=== PATIENT | male | born 1980 | race Caucasian/White ===

== ENCOUNTER 2023-05-01 07:45 | Outpatient (CLI) | payer BC, SELFPAY ==
--- NOTE | 2023-05-01 08:00 | CRLHL7_ITS ---
For Patients: As a result of the Century Cures Act, medical imaging exams and procedure reports are released immediately into your electronic medical record. You may view this report before your referring provider. If you have questions, please contact your health care provider. INDICATION: Recurrent vomiting, nausea, unintended weight loss of 30+ pounds TECHNIQUE: 1.024 mCi sulfur colloid in eggs administered followed by routine planer anterior/posterior images of the stomach at 60, 90, 120 and 240 minutes. COMPARISON: CT performed same day FINDINGS: Immediate images demonstrate radiotracer uptake within the stomach. Radiotracer activity progresses from the stomach into the small bowel at 60, 90, 120 and 240 minutes with near complete clearing of the stomach at 240 minutes. Gastric emptying percentages as below: 0 min 100% remaining 60 min 40.8% remaining 90 min 22% remaining 120 min 11.5% remaining 240 min 0.48% remaining IMPRESSION: Normal gastric scintigraphy examination. No evidence of delayed gastric emptying or rapid gastric emptying. Dictated by Gianni Duenas MD @ 05/02/2023 10:12:11 AM (Electronically Signed)
--- NOTE | 2023-05-01 13:30 | CRLHL7_ITS ---
For Patients: As a result of the Century Cures Act, medical imaging exams and procedure reports are released immediately into your electronic medical record. You may view this report before your referring provider. If you have questions, please contact your health care provider. Indication: RECURRENT VOMITING Technique: Postcontrast CT abdomen and pelvis. 79 cc Isovue 370 intravenous contrast. Please note that all CT scans at this facility use dose modulation, iterative reconstruction, and/or weight-based dosing when appropriate to reduce radiation dose to as low as reasonably achievable. Comparison: CT chest 02/20/2022, gastric emptying exam 05/01/2023, colonoscopy and EGD 03/20/2023, ultrasound 02/12/2023 Findings: Lung bases are clear. No pleural effusion. No suspicious intrahepatic mass. Small incidental focus of fat deposition within the liver adjacent to the falciform ligament. The spleen is normal. Normal adrenal glands. Small extrarenal pelvis is present bilaterally. Left renal cysts measuring up to 1.9 cm. No solid renal mass. No hydronephrosis. No hiatal hernia. The stomach appears normal. Normal position of the duodenum and jejunum without malrotation. The prostate is mildly prominent. Normal bladder. No bladder stones. No bowel obstruction. Stool throughout the colon. Normal appendix. Terminal ileum appears normal. A few scattered subcentimeter retroperitoneal and mesenteric lymph nodes are present. No free air or free fluid. No abscess. No fracture. Degenerative changes of both hip joints with chondrocalcinosis. The gallbladder is normal. Normal tapering of the biliary tree. Calcifications are present adjacent to the pancreatic head. The pancreatic tail is absent. No portal vein thrombosis. 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 This may be associated with exocrine insufficiency/abdominal pain. Coarse calcifications adjacent to the pancreatic head may be secondary to recurrent episodes of pancreatic head pancreatitis. No acute inflammation. No malrotation is present. Incidental simple left renal cysts. Please note that all CT scans at this facility use dose modulation, iterative reconstruction, and/or weight-based dosing when appropriate to reduce radiation dose to as low as reasonably achievable. Dictated by Gianni Duenas MD @ 05/02/2023 10:07:10 AM (Electronically Signed)
== END 2023-05-01 07:46 | disposition home or self-care (01) ==
LOC: NM 07:48
PROVIDERS: PCP Physician Assistant; Visit Provider Internal Medicine Gastroenterology
DX: R11.10 Vomiting, unspecified (principal); K85.90 Acute pancreatitis without necrosis or infection, unspecified; N28.1 Cyst of kidney, acquired; R12 Heartburn; R63.4 Abnormal weight loss
CPT/HCPCS: 74177; 78264; A9541; Q9967

== ENCOUNTER 2024-12-18 16:06 | Observation (INO) | payer BC, SELFPAY ==
[2024-12-18] VITALS (14 sets, daily range): BP systolic 123–153; BP diastolic 79–102; PULSE 80–106; RESP 0–20; TEMP 36.8–37.3; O2SAT 95–98; BMI 24.4; BMI 24.7
--- OUTSIDE RECORDS SUMMARY | 2024-12-18 16:09 | XMS_ITS | Clinical Summary ---
Author Organization [facility] Address [address] [place] [id number] Care Team Providers Care Back Filler Operator Name Role Phone Elsewhere, Pcp Primary Care Provider Unavailabl e Source Comments Patient records contain information from all sites at [facility]. For routine questions regarding patient records, call [phone] during business hours, M-F 8:00 AM - 5:00 PM Central Time. Record requests for emergency care only can be directed to [phone] at any time.[facility] Allergies Active Allergy Reactions Criticality Noted Date Comments Bee Venom Protein (Honey Bee) Anaphylaxis High 06/28/2023 Hymenoptera Allergenic Extract Edema (Reselect Reaction),Shortness of breath (Reselect Reaction) Medium 10/10/2006 Pollen Extracts Other (see comments) 12/31/2010 Pollen, Micronized Other (see comments) Low Medications blood sugar diagnostic strips (Contour Next Test Strips) Test 3 times daily E11.65 NIDDM type II, uncontrolled - Test 3 times/day, Reason: High A1C Active busPIRone (BUSPAR) 30 mg tablet Take 30 mg by mouth. 023 Active Trulicity 3 mg/0.5 mL injection INJECT 3 MG SUBCUTANEOUSLY ONCE A WEEK Active DULoxetine (CYMBALTA) [address] capsule Take 60 mg by mouth. 023 Active EPINEPHrine 0.3 mg/0.3 mL injection syringe Inject 0.3 mg intramuscularly daily as needed. 022 Active famotidine (PEPCID) 40 mg tablet Take 40 mg by mouth. 023 Active fluticasone propionate (FLONASE) 50 mcg/actuation nasal spray Administer 2 sprays into nostril(s) as needed. 022 Active fenofibrate nanocrystallized (TRICOR) 145 mg tablet Take 145 mg by mouth daily. Active hydrOXYzine (ATARAX) 25 mg tablet Take 25-50 mg by mouth every 8 (eight) hours as needed. Active lisinopriL (PRINIVIL,ZESTRIL) 5 mg tablet Take 5 mg by mouth. Active loperamide (IMODIUM A-D) 2 mg capsule Take 2 mg by mouth 2 (two) times a day as needed. Active magnesium oxide (MAG-OX) 400 mg (241.3 mg magnesium) tablet Take 400 mg by mouth. Active metoclopramide (REGLAN) 5 mg tablet Take 5 mg up to 2 times a day for severe nausea/vomiting. Active ondansetron ODT (ZOFRAN-ODT) 4 mg disintegrating tablet Dissolve 4 mg in the mouth every 8 (eight) hours as needed. Active pantoprazole (PROTONIX) 40 mg EC tablet Active pioglitazone (ACTOS) 30 mg tablet Take 30 mg by mouth. Active pravastatin (PRAVACHOL) 20 mg tablet Take 1 tablet by mouth at bedtime. Active sildenafiL (VIAGRA) 100 mg tablet Take 100 mg by mouth at bedtime as needed. Active sucralfate (CARAFATE) 1 gram tablet Take 1 g by mouth 3 (three) times a day before meals. for 14 days Active zolpidem (AMBIEN) 5 mg tablet Take 5 mg by mouth at bedtime as needed. Active fluoxetine HCl (FLUOXETINE ORAL) Take by mouth at bedtime. Ask me Active FreeStyle Anurag 2 Sensor kit CHANGE SENSOR EVERY 14 DAYS Active insulin glargine 100 unit/mL (3 mL) injection Inject 16 Units under the skin. Active RISPERIDONE ORAL Take by mouth at bedtime. 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 Gender Identity Not on file Sexual Orientation Not on file Last Filed Vital Signs Vital Sign Reading Time Taken Comments Blood Pressure 110/74 07/03/2023 3:11 PM CDT Pulse 110 07/03/2023 3:11 PM CDT Temperature 36.9 C (98.4 F) 05/16/2023 7:45 PM CDT Respiratory Rate 17 05/17/2023 3:00 AM CDT Oxygen Saturation 97% 05/17/2023 3:00 AM CDT Inhaled Oxygen Concentration - - Weight 70.5 kg (155 lb 6.8 oz) 07/03/2023 3:11 P M CDT Height 180 cm (5' 10.87) 07/03/2023 3:11 PM CDT Body Mass Index 21.76 07/03/2023 3:11 PM CDT Plan of Treatment Health Maintenance Due Date Last Done Comments CT Colonography 1978 Cologuard 1978 FIT 1978 HIV Screening 1978 Hepatitis C Screening 1978 COVID-19 Vaccine ( season) 2024 03/29/2023, 06/15/2022, 12/08/2020 Influenza Vaccine (#1) 2024 , 06/15/2022, 06/24/2020, Additional history exists Creatinine Level (Kidney Function Test) 09/06/2024 09/06/2023, 08/22/2023, 08/21/2023, Additional history exists Potassium Level 09/06/2024 09/06/2023, 07/26, 08/20/2023, Additional history exists Sodium Level 09/06/2024 09/06/2023, 07/26, 08/21/2023, Additional history exists Depression Screening (Annual PHQ-2) 09/24/2024 Fasting Glucose for Diabetes Screening 09/06/2026 09/06/2023, 08/13/2023, 08/13/2023, Additional history exists Lipid (Cholesterol) Screening 08/18/2028 08/18/2023, 09/19/2022, 09/27/2020, Additional history exists Colonoscopy 03/20/2033 03/20/2023 Colorectal Cancer Screening 03/20/2033 DTaP,Tdap,and Td Vaccines (3 - Td or Tdap) 03/29/2033 03/29/2023, 08/01/2011 Pneumococcal vaccine (0-49 years) Aged Out 09/26/2019 No longer eligible based on patient's age to complete this topic Hepatitis B Screening Discontinued 09/27/2020 Hepatitis B Vaccines Completed 09/19/2022, 11/15/2020, 10/11/2020 Glucose Test for Med Monitoring Discontinued 09/06/2023, 08/23/2023, 08/22/2023, Additional history exists IPV Vaccines Aged Out No longer eligi ble based on patient's age to complete this topic Procedures Procedure Name Priority Date/Time Associated Diagnosis Comments COMPREHENSIVE METABOLIC PANEL, S/P Routine 07/03/2023 4:37 PM CDT Nausea And Vomiting Diabetes Mellitus Type 2 With Other Diabetic Kidney Complication Hyperglycemic (HCC) from Last 3 Months or Most Recently Relevant to Health Maintenance Results * (ABNORMAL) Comprehensive Metabolic Panel (07/03/2023 4:37 PM CDT) Potassium, S 4.6 3.6 - 5.2 mmol/L 07/03/2023 5:37 PM CDT DTL Sodium, S 134(L) 135 - 145 mmol/L 07/03/2023 5:37 PM CDT DTL Chloride, S 90(L) 98 - 107 mmol/L 07/03/2023 5:37 PM CDT DTL Bicarbonate, S 31(H) 22 - 29 mmol/L 07/03/2023 5:37 PM CDT DTL Anion Gap 13 7 - 15 07/03/2023 5:37 PM CDT DTL BUN (Blood Urea Nitrogen), S 14 8 - 24 mg/dL 07/03/2023 5:37 PM CDT DTL Creatinine 1.21 0.74 - 1.35 mg/dL 07/03/2023 5:37 PM CDT DTL Estimated GFR (eGFR) 76 >=60 mL/min/BS A 07/03/2023 5:37 PM CDT DTL Comment: Estimated GFR calculated using the 2020 CKD_EPI creatinine equation. Calcium, Total, S 9.8 8.6 - 10.0 mg/dL 07/03/2023 5:37 PM CDT DTL Glucose, S 361(H) 70 - 140 mg/dL 07/03/2023 5:37 PM CDT DTL Protein, Total, S 7.1 6.3 - 7.9 g/dL 07/03/2023 5:37 PM CDT DTL Albumin, S 4.4 3.5 - 5.0 g/dL 07/03/2023 5:37 PM CDT DTL Aspartate Aminotransferase (AST), S 23 8 - 48 U/L 07/03/2023 5:37 PM CDT DTL Alkaline Phosphatase, S 164(H) 40 - 129 U/L 07/03/2023 5:37 PM CDT DTL Alanine Aminotransferase (ALT), S 22 7 - 55 U/L 07/03/2023 5:37 PM CDT DTL Bilirubin, Total, S 0.4 0.0 - 1.2 mg/dL 07/03/2023 5:37 PM CDT DTL Blood (Blood, Venous) 07/03/2023 4:37 PM CDT 07/03/2023 5:17 PM CDT Ovidio Covington M.D. LAB BLOOD ADD-ON Final R esult [facility] [address] [place] [address], [facility] [address] [place] [address] from Last 3 Months or Most Recently Relevant to Health Maintenance Insurance [facility] Care Teams Back Filler Operator Relationship Specialty Start Date End Date Elsewhere, Pcp PCP - General Internal Medicine 05/16/23
--- OUTSIDE RECORDS SUMMARY | 2024-12-18 16:09 | XMS_ITS | Continuity of Care Document ---
Author Organization [facility] Address [address] [address] [place] [address] Phone Care Team Providers Care Pillow Agent Name Role Phone No Information Unavailable Unavailable Allergies, Adverse Reactions, Alerts Substance Reaction Status Criticality No Known Allergies Active No Inform ation Medications Medication Instructions Dosage Effective Dates (start - stop) Status Comments MAGNESIUM-VITAMIN D3-TURMERIC (unknown strength) Not Available - Active lisinopril 5 mg tablet take 1 tablet by oral route every day 5 MG - Active famotidine 40 mg tablet take 1 tablet by oral route every day at bedtime 40 MG - Active pravastatin 20 mg tablet take 1 Tablet by oral route every day 20 MG - Active FENOFIBRATE (unknown strength) take 1 capsule by oral route every day with food Not Available - Active metoclopramide 5 mg tablet take 1 tablet by oral route 8 times every day 30 minutes before meals and at bedtime 5 MG - Active buspirone 15 mg tablet take 1 tablet by oral route 2 times every day 15 MG - Active pioglitazone 30 mg tablet take 1 tablet by oral route every day 30 MG - Active duloxetine 60 mg capsule,delayed release take 1 capsule by oral route 2 times every day 60 MG - Active sucralfate 1 gram tablet take 1 tablet by oral route 1 - 2 times every day 1 G - Active zolpidem 5 mg tablet take 1 Tablet by oral route every bedtime as needed 5 MG - Active hydroxyzine HCl 25 mg tablet take 2 Tablet by oral route every 9 hours as needed for pain 50 MG - Active DULOXETINE HCL (unknown strength) take 1 capsule by oral route every day Not Available - Active insulin glargine (U-100) 100 unit/mL subcutaneous solution inject by subcutaneous route as per insulin protocol 0.00 - Active pantoprazole 40 mg tablet,delayed release take 1 tablet by oral route every day 40 MG - Active Procedures Procedure Date Office Cons New/estab Mod Advance Directives Directive Yes / No Effective Date File Name No Information Encounters Encounter Description Practice Location Reason(s) For Visit Diagnoses Date Provider Providers Copied on Encounter [facility], [address] [address], [place], [place], [id number], [place] tel:[phone] No Information 3 No Information [facility], [address] [address], [place], [place], [id number], [place] tel:[phone] [facility] Pancreatic abnormality [address] [facility], [address], [id number], [place]. tel:[phone] Office Cons New/estab Mod [facility], [address] [address], [place], [place], [id number], [place] tel:[phone] [facility] GI Symptoms or Concerns (chief complaint) Recurrent vomitingWeight lossHeartburn [address] [facility], [facility] [address], [place], [id number], [place]. tel:[phone] Referring Provider: Lizbet Rich [facility], [address] [place] [address], [address]. tel:[phone] [facility], [address] [address], [place], [id number], [place] tel:[phone] [facility] No Information 3 Mehdi López. [address] [address], [place], [id number], . tel:[phone] Family History Family Member Type Diagnosis Age At Onset Brother Problem (finding) Asthma Immunizations Vaccine Date Status Comments SARS-COV-2 (COVID-19) vaccin e, mRNA, spike protein, LNP, bivalent booster, preservative free, 30 mcg/0.3 mL dose, mati-sucrose formulation administered Note: [facility] bi-d irectional interface ; Source: Other Registry tetanus toxoid, reduced diphtheria toxoid, and acellular pertussis vaccine, adsorbed administered Note: [facility] b i-directional interface ; Source: Other Registry Engerix-B administered Note: [facility] bi-d irectional interface ; Source: Other Registry SARS-COV-2 (COVID-19) vaccin e, mRNA, spike protein, LNP, preservative free, 30 mcg/0.3mL dose, mati-sucrose formulation administered Note: [facility] C bi- directional interface ; Source: Other Registry Afluria Qd administered Note: [facility] bi-directional interface ; Source: Other Registry SARS-COV-2 (COVID-19) vaccin e, mRNA, spike protein, LNP, preservative free, 100 mcg/0.5mL dose or 50 mcg/0.25mL dose administered Note: [facility] bi -directional interface ; Source: Other Registry Engerix-B administered Note: [facility] bi-d irectional interface ; Source: Other Registry Engerix-B administered Note: [facility] bi-d irectional interface ; Source: Other Registry influenza virus vaccine, unspecified formulation administered Note: [facility] bi-di rectional interface ; Source: Other Registry Pneumovax 23 administered Note: [facility] bi-d irectional interface ; Source: Other Registry Influenza administered Note: [facility] bi-d irectional interface ; Source: Other Registry Influenza administered Note: [facility] bi-d irectional interface ; Source: Other Registry Influenza administered Note: [facility] bi-d irectional interface ; Source: Other Registry Influenza administered Note: [facility] bi-d irectional interface ; Source: Other Registry Influenza administered Note: [facility] bi-d irectional interface ; Source: Other Registry influenza, live, intranasal, quadrivalent administered Note: [facility] bi-direct ional interface ; Source: Other Registry tetanus toxoid, reduced diphtheria toxoid, and acellular pertussis vaccine, adsorbed administered Note: [facility] b i-directional interface ; Source: Other Registry Influenza, seasonal, injectable administe red Note: [facility] bi- directional interface ; Source: Other Registry Influenza, seasonal, injectable administe red Note: [facility] bi- directional interface ; Source: Other Registry Payers Payer name Insurance type Covered green party ID Authoriza tion(s) No Information Social History Type Description Quantity Date Captured Comments Sex Male Smoking Status No Information Chief Complaint And Reason For Visit No Information Reason For Referral Reason For Referral No Information Plan Of Treatment Date Type Action Status Referral Ordered: Pancreatic Elastase, Fecal Appointment date/timeframe: First Available ordered Referral Ordered: Gastric Emptying Study (4 Hours) Appointment date/timeframe: 05/09/2023 ordered Referral Ordered: CT Abdomen And Pelvis With Contrast Per Radiology Appointment date/timeframe: 05/09/2023 ordered History Of Present Illness Encounter Date Complaint History Of Prese nt Illness GI Symptoms or Concerns Alex is a 42-year-old male with history of diabetes, depression, anxiety accompanied by his girlfriend, seen in consultation at the request of his referring primary care provider Lizbet HURLEY, for evaluation of nausea and vomiting. Patient reports a 2 to three-month history of nausea and vomiting with increased symptoms in the last month. He reports an associated 24 pound weight loss. He describes decreased appetite as well as increased symptoms of heartburn. He has been on famotidine 40 milligrams before bed for a long time. He was recently started on sucralfate. He was also prescribed metoclopramide which she is been taking for the last 2-3 weeks and does not feel that it has helped. He says he will wake in the morning and vomit undigested food. The frequency of symptoms is random. He denies diarrhea constipation or blood in the stool. He underwent an EGD and colonoscopy performed elsewhere on March 20. 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 Labs performed on February 26 showed a normal lipase, normal LFTs except increased alk-phos 177.Colonoscopy showed internal hemorrhoids and was otherwise normal with a recommendation for repeat in 10 years. Functional Status Date Functional Assessmen t No Information Instructions Date Instruction Additional Infor dean 1. take pantoprazole 40mg daily - script sent to pharmacy2. continue famotidine before bed3. stop metoclopramide (patient reports has not helped and risk of tardive dyskinesia)4. sucralfate as needed as prescribed by primary - avoid taking within 2 hours of other medications as can interfere with absorption5. CT abdomen/pelvis6. gastric emptying test7. eat small, frequent, low fat meals8. continue to follow with primary for management of diabetes - optimize glucose control9. f/u after tests Related to Heartburn Assessments Type Assessment Date No Information Patient Care Teams Name Effective Dates (start - stop) Status Members No Information
--- OUTSIDE RECORDS SUMMARY | 2024-12-18 16:09 | XMS_ITS | Clinical Summary ---
Author Organization [facility] Address [address] [place] [address] Care Team Providers Care Seed Analysis Laboratory Assistant Name Role Phone Anushka Krueger Luis Enrique RN Unavailable Alanis Archuleta MD Primary Care Prov ider Cecelia Collins ACID TENDER Unavailable [phone] Rachel Davis RN Unavailable [phone] Yosvany Alcocer PharmD Unavailable Allergies Active Allergy Reactions Criticality Noted Date Comments Hymenoptera Allergenic Extract Shortness Of Breath,Edema Medium 10/10/2006 Bee Venom Protein (Honey Bee) Anaphylaxis High 06/28/2023 Pollen, Micronized Runny Nose Low 10/10/2006 Medications lancetsIndications: Hyperosmolar hyperglycemic state (HHS) (HC) Dispense item covered by pt ins. E11.9 IDDM type II - Test 4 times/day. 100 Each 08/20/20 23 Active Blood-Glucose Meter (Accu-Chek Guide Glucose Meter) Use as directed to test blood sugar. 1 Each 08/20/20 23 Active DULoxetine (CYMBALTA) 60 mg Delayed-release capsuleIndications: MDD (major depressive disorder), recurrent episode, moderate (HC) Take 1 Capsule (60 mg) by mouth once daily. 90 Capsule 3 11/27/19 24 Active EPINEPHrine (EPIPEN) 0.3 mg/0.3 mL auto-injectorIndica tions:Allergic reaction, subsequent encounter Inject 0.3 mg intramuscular one time if needed for Allergic Reaction. 2 Each 1 11/27/19 24 Active fenofibrate nanocrystallized (Tricor) 145 mg tabletIndications:H yperlipidemia, unspecified hyperlipidemia type Take 1 Tablet (145 mg) by mouth once daily with a meal. 90 Tablet 3 11/27/19 24 Active lisinopriL (PRINIVIL; ZESTRIL) 5 mg tabletIndications:S tage 3b chronic kidney disease (HC) Take 1 Tablet (5 mg) by mouth once daily. 90 Tablet 3 11/27/19 24 Active pravastatin (PRAVACHOL) 20 mg tabletIndications:H yperlipidemia, unspecified hyperlipidemia type Take 1 Tablet (20 mg) by mouth at bedtime. 90 Tablet 3 11/27/19 24 Active blood sugar diagnostic (Contour Next Test Strips) stripIndications:Di abetes mellitus type 2 with complications (HC) Dispense item covered by pt ins. E11.65 NIDDM type II, uncontrolled - Test 4 time/day 100 Each 05/01/20 24 Active pen needle (Yasmin Pen Needle) 32 gauge x 5/32 (disposable insulin pen needle)Indications: Diabetes mellitus type 2 with complications (HC) Inject 100 Each subcutaneous. To use with insulin 4x daily 100 Each 3 05/01/20 24 Active medication order composerIndications :Hypomagnesemia,Hyp okalemia Patch MD Multivitamin patches-apply 1 patch to dry skin. Change daily. Leave on up to 8 hours per day. 90 Patch 05/08/20 24 Active ciclopirox (CICLODAN) 8 % topical solutionIndications :Onychomycosis Apply topically to affected area(s) at bedtime. Apply solution once daily to affected nails with applicator brush, preferably at bedtime or 8 hours before washing; remove with alcohol every 7 days 6.6 mL 05/08/20 24 Active sennosides (SENNA) 8.6 mg tabletIndications:C onstipation, unspecified constipation type Take 2 Tablets (17.2 mg) by mouth 2 times daily if needed (constipation). 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 Take 30 minutes to 4 hours before sexual activity. Max 100mg/24hr. 10 Tablet 2 08/08/20 24 Active metFORMIN (GLUCOPHAGE XR) 500 mg Extended-Release tabletIndications:U ncontrolled type 2 diabetes mellitus with hyperglycemia (HC) Take 1 Tablet (500 mg) by mouth two times daily with meals. 180 Tablet 3 09/08/20 24 Active FreeStyle Anurag 3 Plus Sensor for continuous blood glucose monitor (CGM)Indications:Di abetes mellitus type 2 with complications (HC) To be used to read blood sugars, follow glue bone drier directions. Change every 15 days 2 Each 11 10/31/19 25 Active empagliflozin (JARDIANCE) 25 mg tabletIndications:D iabetes mellitus type 2 with complications (HC) Take 1 Tablet (25 mg) by mouth once daily. 90 Tablet 11/21/19 25 Active mirtazapine (REMERON) 45 mg tabletIndications:D epression, unspecified depression type Take 1 Tablet (45 mg) by mouth at bedtime. 60 Tablet 11/21/19 25 Active magnesium oxide 400 mg tabletIndications:H ypomagnesemia Take 1 Tablet (400 mg) by mouth two times daily. If significant diarrhea, ok to take 1 pill per day 60 Tablet 12/11/19 25 Active insulin aspart (U-100) 100 unit/mL (3 mL) penIndications:Diab etes mellitus type 2 with complications (HC) Novolog to 15 units at lunch (10:30AM), snack/fastfood (2:30PM), dinner (7PM) 12/11/19 25 Active Lantus Solostar U-100 Insulin 100 unit/mL (3 mL) penIndications:Diab etes mellitus type 2 with complications (HC) Inject 35 units subcutaneous at night. Product desired: LANTUS SOLOSTAR 12/11/19 25 Active FreeStyle Anurag 2 SensorIndications:D iabetes mellitus type 2 with complications (HC) CHANGE SENSOR EVERY 14 DAYS 6 Each 3 04/28/20 24 2024 Disconti nued(*Pa tient states no longer taking) mirtazapine (REMERON) 30 mg tabletIndications:D epression, unspecified depression type Take 1 Tablet (30 mg) by mouth at bedtime. 90 Tablet 3 08/08/20 24 2024 Disconti nued(Reo rder (E-cance l not sent)) empagliflozin (JARDIANCE) 10 mg tabletIndications:D iabetes mellitus type 2 with complications (HC) Take 1 Tablet (10 mg) by mouth once daily. 60 Tablet 10/20/19 25 2024 Disconti nued(*Me d complete /Regimen complete /Level of care change) Lantus Solostar U-100 Insulin 100 unit/mL (3 mL) penIndications:Diab etes mellitus type 2 with complications (HC) Inject 20 units subcutaneous before work and 20 units subcutaneous before supper. Product desired: LANTUS SOLOSTAR 11/06/19 25 2024 Disconti nued(Reo rder (E-cance l not sent)) insulin aspart, U-100, (NOVOLOG FLEXPEN) 100 unit/mL (3 mL) penIndications:Diab etes mellitus type 2 with complications (HC) Novolog to 10 units at lunch (10:30AM), snack/fastfood (2:30PM), dinner (7PM) 11/06/19 25 2024 Disconti nued(Reo rder (E-cance l not sent)) Active Problems Problem Noted Date Diagnosed Date Pancreatic hypoplasia 08/08/2024 Severe episode of recurrent major depressive disorder, without psychotic features 11/30/2023 Suicidal ideation 08/13/2023 Hyperosmolar hyperglycemic state (HHS) 3 Intractable vomiting 06/15/2023 Uncontrolled type 2 diabetes mellitus with hyper glycemia 06/15/2023 Encounter for screening colonoscopy 03/20/2023 Chronic GERD 03/15/2023 Stage 3b chronic kidney disease 02/05/2023 Peripheral sensory neuropathy 09/20/2022 Primary insomnia 03/06/2022 Acute gout of left ankle 02/21/2022 Cognitive developmental delay 02/21/2022 Hypomagnesemia 02/21/2022 Hypokalemia with shifts of f luid from extracellular to intracellular space 02/21/2022 Pulmonary nodule 02/20/2022 Diabetes mellitus type 2, uncontrolled, with com plications 09/28/2020 Major depressive disorder, recurrent episode, mo derate 11/28/2018 Generalized anxiety disorder 11/28/2018 HTN (hypertension) 08/24/2014 Hyperlipidemia 03/25/2013 Allergic rhinitis 03/24/2013 Resolved Problems Problem Noted Date Diagnosed Date Resolved Date HHS (hypothenar hammer syndrome) 08/13/2023 08/13/2023 Hyponatremia 08/13/2023 08/13/2023 Type 2 diabetes mellitus wit 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, with long-term current use of insulin 04/12/2023 06/15/2023 Sinusitis 02/21/2022 09/20/2022 DKA (diabetic ketoacidosis) 02/20/2022 12/27/2022 Right shoulder pain 02/20/2022 09/20/20 Right ankle pain 02/20/2022 09/20/2022 Sepsis 02/20/2022 09/20/2022 Confusion 02/20/2022 09/20/2022 COVID-19 virus infection 08/24/2021 CKD (chronic kidney disease) stage 3, GFR 30-59 ml/min 09/28/2020 02/05/2023 Diabetes mellitus type 2, un controlled, without complications 09/26/2019 09/28/2020 YASH (generalized anxiety disorder) 08/02/2018 02/02/2020 Diabetes mellitus type 2, uncomplicated 03/25/2013 08/02/2018 Major depressive disorder, r ecurrent episode, mild 10/17/2007 02/02/2020 Adjustment disorder with mix ed anxiety and depressed mood 10/17/2007 08/02/2018 Encounters Date Type Department Care Team Description 12/18/2024 3:05 PM CDT Office Visit [facility] [address] [place] [address] Talha Dominguez MD Diabetes (Not feeling well lately, missing work due to not feeling well. ) 12/18/2024 Travel 12/10/2024 Telephone [facility] [address] [place] [address] Talha Dominguez MD Results 12/10/2024 Orders Only [facility] [address] [place] [address] Talha Dominguez MD <No scans attached> 12/10/2024 Telephone [facility] [address] [place] [address] Selena Sánchez PA 12/09/2024 Orders Only [facility] Scanner 1 scan: (1-Ord) [facility], MULTIPLE LAB TESTS, 12/09/2024 12/09/2024 Travel 12/04/2024 Telephone [facility] [address] [place] [address] Alanis Archuleta MD 11/24/2024 3:30 PM LEAD JAVA DEVELOPER ARCHITECT Patient Outreach [facility] Care Management - Advanced Care Team [address] [place] [address] Cecelia Collins LSW Complex Care Management (Follow Up Call) 11/21/2024 3:30 PM LEAD JAVA DEVELOPER ARCHITECT Office Visit [facility] [address] [place] [address] Talha Dominguez MD Follow Up (Diabetes ) 11/21/2024 Travel 11/14/2024 3:30 PM LEAD JAVA DEVELOPER ARCHITECT Patient Outreach [facility] Care Management - Advanced Care Team [address] [place] [address] Cecelia Collins LSW Complex Care Management (Follow Up Call) 11/12/2024 3:30 PM LEAD JAVA DEVELOPER ARCHITECT Office Visit [facility] [address] [place] [address] Pierce Herzog PsyD, JAMAL Individual Therapy 11/12/2024 Travel 11/11/[address] [address] Anushka Krueger RN Diabetes (Anurag CGM report/insulin management) 11/06/[address] [phone] Anushka Krueger fuel cell binder (Insulin management/CGM report) 11/05/2024 4:00 PM LEAD JAVA DEVELOPER ARCHITECT Patient Outreach [facility] Care Management - Advanced Care Team [address] [place] [address] Rachel Davis RN Complex Care Management (Patient Outreach - F/u) 11/05/2024 Travel 10/31/2024 3:00 PM LEAD JAVA DEVELOPER ARCHITECT Patient Outreach [address] [address] Anushka Krueger RN Diabetes (Follow-up hyperglycemia) 10/31/2024 Travel 10/29/2024 3:30 PM LEAD JAVA DEVELOPER ARCHITECT Office Visit [facility] [address] [place] [phone] Pierce Herzog PsyD, LP Individual Therapy 10/29/2024 Travel 10/27/2024 Patient Outreach [facility] Care Management - Advanced Care Team [address] [place] [phone] Cecelia Collins LSW Complex Care Management (Resources) 10/23/2024 3:00 PM LEAD JAVA DEVELOPER ARCHITECT Patient Outreach [facility] Care Management - Advanced Care Team [address] [place] [phone] Cecelia Collins LSW Complex Care Management (Initial Assessment) 10/22/2024 5:30 PM LEAD JAVA DEVELOPER ARCHITECT Phone Office Visit [facility] [address] [place] [address] Pierce Herzog PsyD, LP Individual Therapy; [facility]health[facility] 10/22/2024 Travel 10/21/2024 Patient Outreach [facility] Care Management - Advanced Care Team [address] [place] [phone] Rachel Davis RN Complex Care Management (Patient Outreach - F/u) 10/20/2024 3:30 PM LEAD JAVA DEVELOPER ARCHITECT Office Visit [facility] [address] [place] [address] Talha Dominguez MD Diabetes (sensor difficulty/feeling weak in the AMs) 10/20/2024 Travel 10/16/2024 3:00 PM LEAD JAVA DEVELOPER ARCHITECT Patient Outreach [facility] Care Management - Advanced Care Team [address] [place] [address] Cecelia Collins LSW Complex Care Management 10/15/2024 Telephone [facility] [address] [place] [address] Pierce Herzog PsyD, LP Appointment 10/07/2024 3:00 PM LEAD JAVA DEVELOPER ARCHITECT Patient Outreach [facility] Care Management - Advanced Care Team [address] [place] [phone] Rachel Davis, watershed program manager Management (Patient Outreach - Initial Clinician Call) 10/07/2024 Travel 10/02/2024 3:00 PM LEAD JAVA DEVELOPER ARCHITECT Pharmacist Medication Management [facility] [address] [place] [address] Yosvany Alcocer, PharmD Pharmacist Medication Management (PharmD initial PHONE CMR ) 09/30/2024 Patient Outreach [facility] Care Management - Advanced Care Team [address] [place] [address] Cecelia Collins LSW Complex Care Management (Care Coordination) 09/26/2024 3:00 PM LEAD JAVA DEVELOPER ARCHITECT Patient Outreach [facility] Care Management - Advanced Care Team [address] [place] [address] Cecelia Collins LSW Complex Care Management (Initial Clinician Outreach) 09/22/2024 Patient Outreach [facility] Care Management - Advanced Care Team [address] [place] [phone] Hayley Angel Complex Care Management ([facility] Engagement Outreach ) from Last 3 Months Immunizations Immunization Administration Dates Next Due COVID-19 vaccine (Moderna 100mcg/0.5mL) PF, MDV 12/08/2020 COVID-19 vaccine (Pfizer-Bio NTech 30mcg/0.3mL) 12YO+ BIVALENT PF, MDV 03/29/2023 COVID-19 vaccine (Pfizer-Bio NTech 30mcg/0.3mL) 12YO+ NOMI-SUCROSE PF, MDV 06/15/2022 Hepatitis B (Adult) 09/19/2022,11/15/2020,2020 INFLUENZA, IIV3 PF (AGE >= 6 MO) 06/20/2024 Influenza Virus, Unspecified 06/24/2020,07/31/20 13,07/27/2010 Influenza, IIV3 (Age >=3 years) 07/26/2011 Influenza, IIV4 11/27/2023,08/17/2023(),06/15/20 22 Influenza, IIV4 (=>6mos) MDV 07/16/2019, 07/11/2018,07/12/2017,2015 Pneumococcal Poly,23-Valent (Pneumovax) 09/26/2019 Tdap 03/29/2023,08/01/2011 Family History Medical History Relation Name Comments Diabetes Maternal Grandmother Diabetes Paternal Grandfather Relation Name Status Comments Maternal Grandmother Paternal Grandfather Social History Tobacco Use Types Packs/Day Years Used Date Smoking Tobacco: Former Smokeless Tobacco: Never Tobacco Cessation:Counseling Given: Yes Alcohol Use Standard Drinks/Week Comments Yes 0 (1 standard drink = 0.6 oz pure alcohol) occasionally wine,beer or liquor PHQ-2 Answer Date Recorded PHQ-2 TOTAL SCORE 4 10/23/2024 Social Connections Answer Date Recorded Do you often feel lonely or isolated from those around you? 4 10/23/2024 Alcohol Use Answer Date Recorded How often do you have a drink containing alcohol ? 0 08/19/2023 How many drinks containing a lcohol do you have on a typical day when you are drinking? 0 08/19/2023 How often do you have five or more drinks on one occasion? 0 08/19/2023 Financial Resource Strain Answer Date R ecorded Difficulty of Paying Living Expenses 1 10/23/2024 Difficulty of Paying Living Expenses 2 10/23/2024 Food Insecurity Answer Date Recorded Do you worry your food will run out before you are able to buy more? 1 10/23/2024 Transportation Needs Answer Date Record ed Does lack of transportation keep you from medica l appointments? 1 10/23/2024 Does lack of transportation keep you from work, meetings or getting things that you need? 1 10/23/2024 Housing Stability Answer Date Recorded What is your housing situation today? 2 10/23/2024 Interpersonal Safety Answer Date Record ed Are you being hit, kicked, p ushed or yelled at (see row info)? No 04/02/2024 Interpersonal Safety Abuse 12 - 18 Not on file 04/02/2024 Interpersonal Safety Ambulatory Vulnerability No t on file 04/02/2024 Utilities Answer Date Recorded Do you have trouble paying f or utilities (for example, heat, electricity, water, phone)? 1 10/23/2024 Sex and Gender Information Value Date Recorded Sex Assigned at Not on file Legal Sex Male 7:13 AM LEAD JAVA DEVELOPER ARCHITECT Gender Identity Not on file Sexual Orientation Not on file Obstetrics History Last Filed Vital Signs Vital Sign Reading Time Taken Comments Blood Pressure 125/82 12/18/2024 3:03 PM CDT Pulse 115 12/18/2024 3:03 PM CDT Temperature 37.3 C (99.2 F) 12/18/2024 3:03 PM CDT Respiratory Rate 18 04/02/2024 8:16 AM CDT Oxygen Saturation 96% 12/18/2024 3:03 PM CDT Inhaled Oxygen Concentration - - Weight 83.5 kg (184 lb) 12/18/2024 3:03 PM CDT Height 180.3 cm (5' 11) 04/02/2024 8:16 AM CDT Body Mass Index 25.66 04/02/2024 8:16 AM CDT Plan of Treatment Upcoming Encounters Date Type Department Care Team (Late st Contact Info) Description 12/22/2024 3:30 PM CDT Office Visit [facility] [address] [address] [place] [address] [place], [place] [phone] Health Maintenance Due Date Last Done Comments Pneumococcal series for age 6-49 (2 of 2 - PCV) 09/26/2020 09/26/2019 BMI (ht and wt on same day) for age 18+ 01/27/2024 01/26/2023, 12/13/2020, 09/26/2019, Additional history exists COVID-19 vaccine series ( season) 2024 03/29/2023, 06/15/2022, 12/08/2020 Depression screening for age 12+ 10/23/2025 10/23/2024, 10/21/2024, 05/12/2024, Additional history exists Lipids for age 45-75 08/18/2028 08/18/2023, 09/19/2022, 09/19/2022, Additional history exists Colonoscopy through age 75 03/20/2033 03/20/2023 Tetanus booster 03/29/2033 03/29/2023, 04/2011, 08/01/2011 Hepatitis C screening for ag e 18-79 Completed 10/10/2006 Hepatitis B series for Diabetes Completed 09/19/2022, 11/15/2020, 10/11/2020 HIV for age 15-65 Completed 03/29/2023 Tdap Completed 03/29/2023, 08/01/2011 Influenza Vaccine Completed 06/20/2024, , 06/15/2022, Additional history exists Procedures Procedure Name Priority Date/Time Associated Diagnosis Comments BASIC METABOLIC PANEL Routine 12/09/2024 2:41 PM CDT Diabetes mellitus type 2, uncontrolled, with complications HTN (hypertension) HEMOGLOBIN A1C Routine 12/09/2024 2:41 PM CDT Diabetes mellitus type 2, uncontrolled, with complications MAGNESIUM Routine 12/09/2024 2:41 PM CDT Magnesium deficiency SCAN-LABORATORY REPORT 12/09/2024 12:00 AM CDT LIPID PANEL EMANUEL 08/18/2023 5:09 PM LEAD JAVA DEVELOPER ARCHITECT LC HIV-1/O/2, 4TH GENERATION Routine 03/29/2023 4:40 PM CDT Screening for HIV (human immunodeficiency virus) COLONOSCOPY 03/20/2023 12:17 PM CDT ANTI HCV Routine 10/10/2006 2:36 PM LEAD JAVA DEVELOPER ARCHITECT Venereal Disease, Unspecified from Last 3 Months or Most Recently Relevant to Health Maintenance Results * (ABNORMAL) HEMOGLOBIN A1C (12/09/2024 2:41 PM CDT) HEMOGLOBIN A1C 13.9(H) <5.7 % of total Hgb [facility] Comment: For someone without known diabetes, a hemoglobin A1c value of 6.5% or greater indicates that they may have diabetes and this should be confirmed with a follow-up test. For someone with known diabetes, a value <7% indicates that their diabetes is well controlled and a value greater than or equal to 7% indicates suboptimal control. A1c targets should be individualized based on duration of diabetes, age, comorbid conditions, and other considerations. Currently, no consensus exists regarding use of hemoglobin A1c for diagnosis of diabetes for children. Blood BLOOD SPECIMEN / Unknown 12/09/2024 2:41 PM CDT 12/09/2024 2:42 PM CDT Talha Dominguez MD CHEMISTRY Final Result [facility] [address] [place] [address], [place] [phone] [facility] [address] [place] [address] * (ABNORMAL) MAGNESIUM (12/09/2024 2:41 PM CDT) MAGNESIUM 1.1(L) 1.5 - 2.5 mg/dL [facility] Blood BLOOD SPECIMEN / Unknown 12/09/2024 2:41 PM CDT 12/09/2024 2:42 PM CDT Talha Dominguez MD CHEMISTRY Final Result [facility] [address] [facility] [place] [address], [place] [phone] [facility] [address] [place] [address] * (ABNORMAL) BASIC METABOLIC PANEL (12/09/2024 2:41 PM CDT) GLUCOSE 596(HH) 65 - 99 mg/dL [facility] Comment: Verified by repeat analysis. Fasting reference interval For someone without known diabetes, a glucose value >125 mg/dL indicates that they may have diabetes and this should be confirmed with a follow-up test. UREA NITROGEN (BUN) 23 7 - 25 mg/dL [facility] CREATININE 1.34(H) 0.60 - 1.29 mg/dL [facility] EGFR 66 > OR = 60 mL/min/1.7 3m2 [facility] BUN/CREATININE RATIO 17 6 - 22 (calc) [facility] SODIUM 132(L) 135 - 146 mmol/L [facility] POTASSIUM 4.2 3.5 - 5.3 mmol/L [facility] CHLORIDE 88(L) 98 - 110 mmol/L [facility] CARBON DIOXIDE 32 20 - 32 mmol/L [facility] ELECTROLYTE BALANCE 12 7 - 17 mmol/L (calc) [facility] CALCIUM 9.5 8.6 - 10.3 mg/dL [facility] Blood BLOOD SPECIMEN / Unknown 12/09/2024 2:41 PM CDT 12/09/2024 2:42 PM CDT Talha Dominguez MD CHEMISTRY Final Result [facility] [address] [place] [address], [place] [phone] [facility] [address] [place] [address] * SCAN-LABORATORY REPORT (12/09/2024 12:00 AM CDT) us Scanner OTHER Final Result * Lipid Panel (08/18/2023 5:09 PM LEAD JAVA DEVELOPER ARCHITECT) Pathologist [facility] CHOLESTEROL,TOTAL 160 100 - 199 mg/dL 08/19/2023 8:30 AM [facility] Comment: Cholesterol, Total Reference Ranges Desirable <200 mg/dL Borderline 200-239 mg/dL High >=240 mg/dL TRIGLYCERIDES 129 <150 mg/dL 08/19/2023 8:30 AM [facility] HDL CHOLESTEROL 59 >40 mg/dL 8:30 AM [facility] NON-HDL CHOLESTEROL 101 <145 mg/dl 08/19/2023 8:30 AM [facility] CHOL/HDL RATIO 2.71 <4.50 08/19/2023 8:30 AM [facility] LDL CHOLESTEROL 75 <=130 mg/dL 08/19/2023 8:30 AM [facility] VLDL CHOLESTEROL 26 <=30 mg/dL 08/19/20 8:30 AM [facility] Blood BLOOD SPECIMEN / Unknown Venipuncture / Unknown 08/18/2023 5:09 PM LEAD JAVA DEVELOPER ARCHITECT 08/18/2023 5:11 PM LEAD JAVA DEVELOPER ARCHITECT us Meng Dudley [facility] PREMIUM REPRESENTATIVE CHEMISTRY Final Re sult [facility] [address] [place], [place] [id number] * LC HIV-1/O/2, 4TH GENERATION (03/29/2023 4:40 PM CDT) HIV Scr 4th Gen Non Reactive Non Reactive 04/04/2023 3:08 AM CDT [facility] Comment: HIV Negative HIV-1/HIV-2 antibodies and HIV-1 p24 antigen were NOT detected. There is no laboratory evidence of HIV infection. Blood BLOOD SPECIMEN / Unknown Venipuncture / Unknown 03/29/2023 4:40 PM CDT 03/29/2023 4:41 PM CDT Narrative [facility] - 04/04/2023 3:08 AM CDT Performed at: [address] [place] [address], [place] [id number] [employer]: Marcos Cruz MD, Phone: [phone] us [facility] Final Resu lt [facility] [place] [address], [place] * COLONOSCOPY (03/20/2023 12:17 PM CDT) 03/20/2023 12:1 7 PM CDT Narrative Transcriptions Anamaria Sousa, - 03/28/2023 2:47 PM CDT Patient Name: Bran Kuball Procedure Date: 03/20/2023 Gender: Male Date of : 1980 Admit Type: Ambulatory Procedure: Colonoscopy Proceduralist: Anamaria Sousa MD [facility] Referring MD: Lizbet Rich Indications/Pre-Op Diagnosis: Screening for colorectal malignant neoplasm, This is the patient's first colonoscopy Medications: Propofol per Anesthesia Procedure Description: The patient had risks, benefits and alternatives explained to andgave informed consent. The patient had a stable cardiopulmonary status and judged an adequate candidate for conscious sedation. The endoscope [id number] was passed through the anus andadvanced to the cecum, identified by appendiceal orifice and ileocecal valve.The colonoscopy was performed without difficulty. The patient toleratedthe procedure well. The ileocecal valve, appendiceal orifice, and rectum were photographed. The quality of the bowel preparation was adequateto identify polyps greater than 5 mm in size. Complications: No immediate complications. Estimated Blood Loss & Specimen: Estimated blood loss: none. Specimen collected - None Findings: Non-bleeding internal hemorrhoids were found during retroflexion. The hemorrhoids were Grade II (internal hemorrhoids that prolapse butreduce spontaneously). The exam was otherwise without abnormality. Impressions/Post-Op Diagnosis: - Non-bleeding internal hemorrhoids. - The examination was otherwise normal. - No specimens collected. Recommendation: - Discharge patient to home. - Patient has a contact number available for emergencies. The signsand symptoms of potential delayed complications were discussed with the patient. Return to normal activities tomorrow. Written discharge instructions were provided to the patient. - High fiber diet. - Continue present medications. - Repeat colonoscopy in 10 years for screening purposes. Moderate Sedation: Moderate (conscious) sedation was personally administered by an anesthesia professional. The following parameters were monitored:oxygen saturation, heart rate, blood pressure, and response to care. Anamaria Sousa MD 03/28/2023 2:47:20 PM This report has been signed electronically. Note Initiated On: 03/20/2023 12:17 PM Anamaria Sousa DO PROCEDURE ORD Fi nal Result * ANTI HCV (10/10/2006 2:36 PM LEAD JAVA DEVELOPER ARCHITECT) ANTI HCV Non-reactiv e [facility] Blood specimen (specimen) BLOOD SPECIMEN / Unknown 10/10/2006 2:36 PM LEAD JAVA DEVELOPER ARCHITECT 10/10/2006 2:25 PM LEAD JAVA DEVELOPER ARCHITECT Narrative [facility] - 10/15/2006 6:52 AM LEAD JAVA DEVELOPER ARCHITECT Testing Performed By [place], [place] Dre Contreras MD SEND OUTS Final Resul t [facility] [address] [place] [address] from Last 3 Months or Most Recently Relevant to Health Maintenance Insurance [facility] WORK[employer] COMP WORKERS COMP [employer] WORKERS COMP WORKERS COMP [employer] INS [facility] [employer] Advance Directives * Full Code (Latest Code Status on File) Date Activated Date Inactivated Comments 08/19/2023 8:00 AM 08/23/2023 11:56 AM Question Answer Comments Code Status Discussion: Reviewed Preferences * Full Code Date Activated Date Inactivated Comments 08/13/2023 9:53 AM 08/19/2023 5:15 AM Question Answer Comments Code Status Discussion: Reviewed Preferences * Full Code Date Activated Date Inactivated Comments 03/20/2023 12:13 PM 03/20/2023 4:06 PM Question Answer Comments Code Status Discussion: Discussed * Full Code Date Activated Date Inactivated Comments 02/20/2022 8:21 PM 02/22/2022 2:54 PM Question Answer Comments Code Status Discussion: Reviewed Preferences Care Teams Seed Analysis Laboratory Assistant Relationship Specialty Start Date End Date Alanis Archuleta [place] [address] PCP - General Family Practice 06/20/24 Anushka Krueger, RN [id number] [place] [id number] Obstetrician And Gynaecologist 11/18/21 Cecelia Collins, ACID TENDER [address] [place], [place] [id number] Complex Care Management District Plant Engineer 09/22/24 Rachel Davis, JERMAINE [address] [place], [place] [id number] Complex Care Management Registered Nurse 09/26/24 Yosvany Alcocer, PharmD [address] [place] [address] Pharmacist Medication Management Pharmacology 10/02/24 10/02/27
--- OUTSIDE RECORDS SUMMARY | 2024-12-18 16:09 | XMS_ITS ---
Author Organization [facility] ([facility]) Address [address] [place] [id number] Care Team Providers Care Filling Hauler Name Role Phone Unavailable Unavailable Unavailable Allergies, Adverse Reactions, Alerts This patient has no known allergies or adverse reactions. Problems This patient has no known problems.
--- NOTE | 2024-12-18 17:23 | ED_ITS ---
HPI - General Adult General Date Seen: 12/18/24 Chief complaint: Diabetic Related Problem Stated complaint: High blood sugar Time Seen by Provider: 12/18/24 17:23 History of Present Illness HPI narrative: 44-year-old male with a history of insulin-dependent diabetes and history of hospitalizations at [facility] for DKA. Per records from [facility]... He has a history of hypertension, hyperlipidemia, gout, uncontrolled type 2 diabetes, chronic GERD, cognitive and developmental delay, insomnia, peripheral neuropathy, depression, chronic kidney disease He had a visit to the primary care clinic, Dr. Dominguez, today. ... symptoms of drowsiness, fatigue, excessive thirst, and pre-syncope for the past 2 weeks, which have progressively worsened. He has not had any fainting episodes but feels like he is going to pass out. Despite adhering to his prescribed medication and insulin regimen, his blood glucose levels have been consistently elevated, ranging from 300s to 400s. He has been monitoring his blood glucose levels 3 times daily, which have been consistently in the 300s. He also reports morning vomiting episodes, occurring twice last week and 3 times this week. He has been experiencing cold sensations in his fingers and feet. He has been feeling very tired and wants to sleep. He has been feeling very thirsty. He has been feeling anxious and called the crisis line yesterday due to this of his health as well as not been able to go to work. Hemoglobin A1c on 12/09/2024 was 13.9, up from 13.0 last June. He is currently on Lantus 35 units q.h.s. and aspart insulin 15 units t.i.d.. Also oral metformin and Jardiance Most recent labs include sodium 132, potassium 4.2, chloride 88, bicarb 32, glucose 596, BUN 23, creatinine 1.34, magnesium 1.1 on 12/09/2024. Patient confirms the above history. He denies any cough. No trouble breathing. No chest pain. No palpitations. No headache. He has been vomiting in the morning a few days ago and typically throws up the food he had eaten the night before. Never anything bloody. No diarrhea. No abdominal pain. No rash. No swelling in his legs. He has been mostly taking his insulin as directed but says that his new palm the ?Aparna breath 3? Has not been reading right so sometimes he does not take insulin when he gets low readings. He is not really able to tell me how often he takes all 3 doses of his short-acting insulin and his long-acting insulin in each day. Related Data Home Medications ?Medication ?Instructions ?Recorded ?Confirmed empagliflozin 25 mg tablet 25 mg PO DAILY 12/18/24 12/18/24 (Jardiance) insulin aspart U-100 100 unit/mL subcut 12/18/24 (3 mL) subcutaneous pen (Novolog FlexPen U-100 Insulin aspart) insulin glargine 100 unit/mL (3 unit subcut 12/18/24 mL) subcutaneous pen (Lantus Solostar U-100 Insulin) metformin 500 mg tablet,extended mg PO 12/18/24 release 24 hr mirtazapine 45 mg tablet 45 mg PO QPM 12/18/24 12/18/24 vitamin patch 12/18/24 Allergies Allergy/AdvReac Type Severity Reaction Status Date / Time bee venom protein (honey bee) Allergy Anaphylaxis Verified 12/18/24 16:49 [facility] Social History Smoking Status: Never smoker Do you use any of these nicotine containing products: None How often do you have a drink containing alcohol: never How often do you have six or more drinks on one occasion: Never AUDIT-C Alcohol total score: 0 Non-prescribed substance use: denies use Exam Narrative: Exam Narrative: Constitutional: Appears well-developed and well-nourished. Alert. Conversant and pleasant. Non toxic. HENT: Head: Atraumatic. Nose: Nose normal. Mouth/Throat: Oral mucosa is clear but somewhat dry, not desiccated or cracked. no trismus. Pharynx normal. Tonsils symmetric. No tonsillar enlargement, erythema, or exudate. Eyes: Conjunctivae normal. EOM normal. Pupils equal, round, and reactive to light. No scleral icterus. Neck: Normal range of motion. Neck supple. No tracheal deviation present. Cardiovascular: Was tachycardic at triage but now that he is resting in his bed he has a Normal rate, regular rhythm. No gallop. No friction rub. No murmur heard. Symmetric radial artery pulses Pulmonary/Chest: Effort normal. No stridor. No respiratory distress. No wheezes. No rales. No rhonchi . No tenderness. Abdominal: Soft. Bowel sounds normal. No distension. No mass. No tenderness. No rebound. No guarding. No CVA tenderness. Musculoskeletal: RUE: Normal range of motion. No tenderness. No deformity LUE: Normal range of motion. No tenderness. No deformity RLE: Normal range of motion. No edema. No tenderness. No deformity LLE: Normal range of motion. No edema. No tenderness. No deformity Neurological: Alert and oriented to person, place, and time. Normal strength. CN II-VII intact. No sensory deficit. GCS eye subscore is 4. GCS verbal subscore is 5. GCS motor subscore is 6. Normal coordination Skin: Skin is warm and dry. No rash noted. No pallor. Normal capillary refill. Psychiatric: Normal mood. Normal affect. Const: Vital Signs, click to edit/add: Vital Signs - 24 hr 12/18/24 16:35 12/18/24 17:56 12/18/24 17:57 Temperature 99.1 F Pulse Rate 97 98 Pulse Rate [Pulse Oximeter] 106 H Respiratory Rate 20 6 L 0 L Blood Pressure 153/100 H Blood Pressure [Ri ght Upper Arm] 130/80 Pulse Oximetry 97 95 96 Oxygen Delivery Me thod Room Air 12/18/24 18:00 12/18/24 18:01 12/18/24 18:15 Temperature Pulse Rate 99 98 104 H Pulse Rate [Pulse Oximeter] Respiratory Rate 5 L 0 L 16 Blood Pressure 131/92 H Blood Pressure [Ri ght Upper Arm] Pulse Oximetry 95 95 98 Oxygen Delivery Me thod 12/18/24 18:16 12/18/24 18:30 12/18/24 18:31 Temperature Pulse Rate 103 H 104 H 103 H Pulse Rate [Pulse Oximeter] Respiratory Rate 10 L 20 9 L Blood Pressure 141/102 H 144/94 H Blood Pressure [Ri ght Upper Arm] Pulse Oximetry 96 96 97 Oxygen Delivery Me thod 12/18/24 18:45 12/18/24 18:46 Temperature Pulse Rate 100 100 Pulse Rate [Pulse Oximeter] Respiratory Rate 11 L 9 L Blood Pressure 125/101 H Blood Pressure [Ri ght Upper Arm] Pulse Oximetry 98 95 Oxygen Delivery Me thod Course Vital Signs Vital signs: Initial Vital Signs Temperature 99.1 F 12/18/24 16:35 Temperature Source Temporal Artery Scan 12/18/24 16:35 Pulse Rate 106 H 12/18/24 16:35 Pulse Rhythm Regular 12/18/24 16:35 Respiratory Rate 20 12/18/24 16:35 Blood Pressure 130/80 12/18/24 16:35 Blood Pressure Mean 96 12/18/24 16:35 Blood Pressure Position Sitting 12/18/24 16:35 Pulse Oximetry 97 12/18/24 16:35 Oxygen Delivery Method Room Air 12/18/24 16:35 Vital Signs Temperature 99.1 F 12/18/24 16:35 Pulse Rate 106 H 12/18/24 16:35 Respiratory Rate 20 12/18/24 16:35 Blood Pressure 130/80 12/18/24 16:35 Pulse Oximetry 97 12/18/24 16:35 Oxygen Delivery Method Room Air 12/18/24 16:35 Temperature 99.1 F 12/18/24 16:35 Pulse Rate 100 12/18/24 18:46 Respiratory Rate 9 L 12/18/24 18:46 Blood Pressure 125/101 H 12/18/24 18:46 Pulse Oximetry 95 12/18/24 18:46 Oxygen Delivery Method Room Air 12/18/24 16:35 Medications Administered Medications: Generic Name Dose Route Start Last Admin Trade Name Freq PRN Reason Stop Dose Admin Insulin Human Regular 20 unit 12/18/24 18:31 12/18/24 18:43 Insulin Regular, Human 100 Unit/Ml Vial SUBCUT 12/18/24 18:32 20 unit ONCE ONE Administration Discontinued Medications Generic Name Dose Route Start Last Admin Trade Name Freq PRN Reason Stop Dose Admin Sodium Chloride 1,000 mls @ 1,000 mls/hr 12/18/24 17:30 12/18/24 17:48 0.9 % Sodium Chloride 1000 Ml IV 12/18/24 18:29 1,000 mls/hr .Q1H KARINA Administration Medical Decision Making MDM Narrative Medical decision making narrative: This patient presents for evaluation of marked hyperglycemia associated with polyuria, polydipsia, trouble concentrating, and nausea and vomiting mostly in the mornings for the past few days.. The initial blood sugar is elevated and . Fortunately venous blood gas shows a normal pH. Anion gap is normal and serum bicarb . At this point no evidence for DKA. Although he has marked hyperglyc emia I do not think he has nonketotic hyperosmolar syndrome. He endorses some vague foggy thinking but otherwise is not have altered mental status, coma. Etiology of hyperglycemia is most likely trouble with med compliance. It sounds like he has not been taking all of his regularly prescribed insulin because his new continuous glucose monitor is giving an accurate readings. It sounds like he also has a history of difficulty controlling his diabetes ongoing for the past couple of years. Workup for infection was performed. No clear evidence for infection or cardiac ischemia causing his hyperglycemia. Admit to medicine for further cares. Discussed with hospitalist, Dr. Renae. We discussed the patient's marked hyperglycemia at 668. We discussed whether not he would require insulin drip or bolus insulin. Dr. Renae is comfortable starting him on bolus insulin. I ordered 20 units subcutaneous insulin to be given here in the ER. Potassium normal at 4.3. Magnesium low at 1.0, will require supplementation.. Kidney function labs reflect dehydration with a BUN of 29 and creatinine 1.2. No evidence for acute renal failure. Hemodynamically stable other than he presented with sinus tachycardia. He is not febrile or hypotensive. No evidence for septic shock. He a please see hospitalist notes for further details about admission status and further workup. Lab Data Labs: Lab Results 12/18/24 12/18/24 Range/Units 17:34 17:40 WBC 9.16 (4.50-11.00) K/uL RBC 4.81 (4.30-5.90) m/uL Hgb 13.6 (13.5-17.5) gm/dL Hct 40.5 (37.0-53.0) % MCV 84 (80-100) fL MCH 28 (26-34) pg MCHC 34 (32-36) gm/dL RDW Coeff of Tim 12.0 (11.5-15.5) % Plt Count 336 (140-440) K/uL Neut % (Auto) 59.2 (42.0-72.0) % Lymph % (Auto) 29.8 (20-44) % [place] % (Auto) 7.2 (0.0-11.0) % Eos % (Auto) 2.7 (0.0-7.0) % Baso % (Auto) 0.3 (0.0-3.0) % Neut # (Auto) 5.42 (1.7-7.0) K/uL Lymph # (Auto) 2.73 (0.90-2.90) K/uL [place] # (Auto) 0.70 (0.00-0.90) K/UL Eos # (Auto) 0.25 (0.00-0.50) K/uL Baso # (Auto) 0.03 (0.00-0.30) K/uL Abs Immat Gran (auto) 0.07 (0.00-0.30) K/uL Imm/Tot Granulo (auto) 0.8 % VBG pH 7.430 (7.32-7.43) VBG pCO2 52 H (40-50) mmHG VBG pO2 39.9 (25-47) mmHG VBG HCO3 35 H (21-28) mmol/L Sodium 128 L (135-149) mmol/L Potassium 4.3 (3.6-5.1) mmol/L Chloride 86 L (96-114) mmol/L Carbon Dioxide 32 (20-32) mmol/L Anion Gap 10 (7-15) mEq/L BUN 29 H (5-24) mg/dL Creatinine 1.2 (0.5-1.5) mg/dL Estimated Creat Clear 81.92 Estimated GFR 76 ml/min Glucose 668 H* (60-115) mg/dL Lactate 2.1 H (0.5-1.9) mmol/L Calcium 9.1 (8.4-10.6) mg/dL Phosphorus 3.3 (2.5-4.5) mg/dL Magnesium 1.0 L (1.5-2.6) mg/dL Total Bilirubin 0.5 (0.1-1.5) mg/dL AST 54 H (12-35) U/L ALT 47 (4-50) U/L Alkaline Phosphatase 141 (40-150) U/L Total Protein 7.2 (6.0-8.3) g/dL Albumin 4.2 (3.3-5.0) g/dL Urine Color Yellow (Yellow) Urine Appearance Clear (Clear) Urine pH 5.5 (5.0-8.5) Ur Specific [place] <= 1.005 (1.000-1.030) Urine Protein Negative (Negative) Urine Glucose (UA) 2+ A (Negative) Urine Ketones Negative (Negative) Urine Blood Negative (Negative) Urine Nitrite Negative (Negative) Urine Bilirubin Negative (Negative) Urine Urobilinogen 0.2 (0.2-1.0) Ur Leukocyte Esterase Negative (Negative) Urine RBC 0-2 (0-2) Urine WBC 0-2 (0-5) Ur Squamous Epith Cells Few (None-Few) Urine Bacteria None (None) SARS-CoV-2 (PCR) Negative SARS-CoV-2 (Negative) Influenza Type A (PCR) Negative PCR FLU A (Negative) Influenza Type B (PCR) Negative PCR FLU B (Negative) RSV (PCR) Negative PCR RSV (Negative) ECG Data Attestation: I personally reviewed and interpreted this ECG as follows: Interpretation: Normal sinus rhythm Rate: 97 VA: 162 QRS axis: Normal axis. ST segment/T wave: No ST segment elevation or depression. Tall T-waves in V2 are nonspecific. I do not think they are ischemic. QTc: 419 No old EKGs available for comparison. Discharge Plan Discharge Clinical Impression: Hyperglycemia Patient Disposition: Admitted As Observation
[2024-12-18] MEDS: 0.9 % SODIUM CHLORIDE 1000 ml 1,000 ML IV (17:48)
[2024-12-18 17:50] LABS: HCO3 VBG 35 mmol/L (21-28); Lactate* 2.1 mmol/L (0.5-1.9); PCO2 VBG 52 mmHG (40-50); PO2 VBG 39.9 mmHG (25-47)
[2024-12-18 17:55] LABS: Appearance Urine Clear (Clear); Bilirubin Urine Negative (Negative); Blood Urine Negative (Negative); Color Urine Yellow (Yellow); Glucose Urine 2+ (Negative); Ketones Urine Negative (Negative); Leukocyte Esterase Urine Negative (Negative); Nitrite Urine Negative (Negative); Protein Urine Negative (Negative); Specific Gravity Urine <= 1.005 (1.000-1.030); Urobilinogen Urine 0.2 (0.2-1.0); pH Urine 5.5 (5.0-8.5)
[2024-12-18 18:00] LABS: Basophils Percent Auto 0.3 % (0.0-3.0); Eosinophils Absolute Auto 0.25 K/uL (0.00-0.50); Eosinophils Percent Auto 2.7 % (0.0-7.0); Hematocrit 40.5 % (37.0-53.0); Hemoglobin* 13.6 gm/dL (13.5-17.5); Immature Granulocytes Pct Auto 0.8 %; Lymphocytes Absolute Auto 2.73 K/uL (0.90-2.90); Lymphocytes Percent Auto 29.8 % (20-44); Mean Corpuscular HGB Conc 34 gm/dL (32-36); Mean Corpuscular Hemoglobin 28 pg (26-34); Mean Corpuscular Volume 84 fL (80-100); Monocytes Percent Auto 7.2 % (0.0-11.0); Neutrophils Absolute Auto 5.42 K/uL (1.7-7.0); Neutrophils Percent Auto 59.2 % (42.0-72.0); Platelet Count* 336 K/uL (140-440); Red Blood Count 4.81 m/uL (4.30-5.90); White Blood Count* 9.16 K/uL (4.50-11.00)
[2024-12-18 18:01] LABS: Basophils Absolute Auto 0.03 K/uL (0.00-0.30); Immature Granulocytes Abs Auto 0.07 K/uL (0.00-0.30)
[2024-12-18 18:07] LABS: Albumin* 4.2 g/dL (3.3-5.0); Chloride* 86 mmol/L (96-114); Sodium* 128 mmol/L (135-149)
[2024-12-18 18:08] LABS: Potassium* 4.3 mmol/L (3.6-5.1)
[2024-12-18 18:10] LABS: Alanine Aminotransferase* 47 U/L (4-50); Alkaline Phosphatase* 141 U/L (40-150); Anion Gap 10 mEq/L (7-15); Aspartate Amino Transferase* 54 U/L (12-35); Bilirubin Total* 0.5 mg/dL (0.1-1.5); Blood Urea Nitrogen* 29 mg/dL (5-24); Carbon Dioxide* 32 mmol/L (20-32); Creatinine* 1.2 mg/dL (0.5-1.5); Est. Creatinine Clearance* 81.92; Estimated Glomerular Filt Rate 76 ml/min; Total Protein* 7.2 g/dL (6.0-8.3)
[2024-12-18 18:11] LABS: Calcium* 9.1 mg/dL (8.4-10.6)
[2024-12-18 18:15] LABS: RBC Urine 0-2 (0-2); WBC Urine 0-2 (0-5)
[2024-12-18 18:16] LABS: Squamous Epithelial Cell Urine Few (None-Few)
[2024-12-18 18:26] LABS: Glucose* 668 mg/dL (60-115)
[2024-12-18 18:27] LABS: Phosphorus* 3.3 mg/dL (2.5-4.5)
[2024-12-18 18:28] LABS: Slide Review Reflex No
[2024-12-18 18:31] LABS: PCR FLU A Negative PCR FLU A (Negative); PCR FLU B Negative PCR FLU B (Negative); PCR RSV Negative PCR RSV (Negative); SARS PCR* Negative SARS-CoV-2 (Negative)
[2024-12-18] MEDS: INSULIN REGULAR, HUMAN 100 UNIT/ML VIAL 20 UNIT SUBCUT (18:43)
--- OUTSIDE RECORDS SUMMARY | 2024-12-18 18:47 | XMS_ITS | Clinical Summary ---
Author Organization [facility] Address [address] [place] [address] Care Team Providers Care Knot Bumper Name Role Phone Anushka Krueger Luis Enrique RN Unavailable Alanis Archuleta MD Primary Care Prov ider Cecelia Collins VP CUSTOMER DEVELOPMENT Unavailable [phone] Rachel Davis RN Unavailable [phone] Yosvany Alcocer PharmD Unavailable Allergies Active Allergy [...] be used to read blood sugars, follow talent development specialist directions. Change every 15 days 2 Each [...] [facility] [address] [place] [address] Talha Dominguez MD Diabetes (Not feeling well lately, missing work due to not feeling well. ) 12/18/2024 Travel 12/10/2024 Telephone [facility] [address] [place] [address] Talha Dominguez MD Results 12/10/2024 Orders Only [facility] [address] [place] [address] Talha Dominguez MD <No scans attached> 12/10/2024 Telephone [facility] [address] [place] [address] Selena Sánchez PA 12/09/[address] [facility] Scanner 1 scan: (1-Ord) [facility], MULTIPLE LAB TESTS, 12/09/2024 12/09/2024 Travel 12/04/2024 Telephone [facility] [address] [place] [address] Alanis Archuleta MD 11/24/2024 3:30 PM MAJOR DONOR COORDINATOR Patient Outreach [facility] Care Management - Advanced Care Team [address] [place] [address] Cecelia Collins LSW Complex Care Management (Follow Up Call) 11/21/2024 3:30 PM MAJOR DONOR COORDINATOR Office Visit [facility] [address] [place] [address] Talha Dominguez MD Follow Up (Diabetes ) 11/21/2024 Travel 11/14/2024 3:30 PM MAJOR DONOR COORDINATOR Patient Outreach [facility] Care Management - Advanced Care Team [address] [place] [address] Cecelia Collins LSW Complex Care Management (Follow Up Call) 11/12/2024 3:30 PM MAJOR DONOR COORDINATOR Office Visit [facility] [address] [place] [address] Pierce Herzog PsyD, JAMAL Individual Therapy 11/12/2024 Travel 11/11/[address] [address] Anushka Krueger RN Diabetes (Anurag CGM report/insulin management) 11/06/[address] [address] Anushka Krueger policy advisor (Insulin management/CGM report) 11/05/2024 4:00 PM MAJOR DONOR COORDINATOR Patient Outreach [facility] Health Care Management - Advanced Care Team [address] [place] [address] Rachel Davis RN Complex Care Management (Patient Outreach - F/u) 11/05/2024 Travel 10/31/2024 3:00 PM MAJOR DONOR COORDINATOR Patient Outreach [address] [address] Anushka Krueger RN Diabetes (Follow-up hyperglycemia) 10/31/2024 Travel 10/29/2024 3:30 PM MAJOR DONOR COORDINATOR Office Visit [facility] [address] [place] [phone] Pierce Herzog PsyD, LP Individual Therapy 10/29/2024 Travel 10/27/2024 Patient Outreach [facility] Care Management - Advanced Care Team [address] [place] [address] Cecelia Collins LSW Complex Care Management (Resources) 10/23/2024 3:00 PM MAJOR DONOR COORDINATOR Patient Outreach [facility] Care Management - Advanced Care Team [address] [place] [address] Cecelia Collins LSW Complex Care Management (Initial Assessment) 10/22/2024 5:30 PM MAJOR DONOR COORDINATOR Phone Office Visit [facility] [address] [place] [address] Pierce Herzog PsyD, LP Individual Therapy; [facility] 10/22/2024 Travel 10/21/2024 Patient Outreach [facility] Care Management - Advanced Care Team [address] [place] [address] Rachel Daivs RN Complex Care Management (Patient Outreach - F/u) 10/20/2024 3:30 PM MAJOR DONOR COORDINATOR Office Visit [facility] [address] [place] [address] Talha Dominguez MD Diabetes (sensor difficulty/feeling weak in the AMs) 10/20/2024 Travel 10/16/2024 3:00 PM MAJOR DONOR COORDINATOR Patient Outreach [facility] Care Management - Advanced Care Team [address] [place] [address] Cecelia Collins LSW Complex Care Management 10/15/2024 Telephone [facility] [address] [place] [address] Pierce Herzog PsyD, LP Appointment 10/07/2024 3:00 PM MAJOR DONOR COORDINATOR Patient Outreach [facility] Care Management - Advanced Care Team [address] [place] [address] Rachel Davis, computerized mill mill recorder Management (Patient Outreach - Initial Clinician Call) 10/07/2024 Travel 10/02/2024 3:00 PM MAJOR DONOR COORDINATOR Pharmacist Medication Management [facility] [address] [place] [address] Yosvany Alcocer, PharmD Pharmacist Medication Management (PharmD initial PHONE CMR ) 09/30/2024 Patient Outreach [facility] Care Management - Advanced Care Team [address] [place] [address] Cecelia Collins LSW Complex Care Management (Care Coordination) 09/26/2024 3:00 PM MAJOR DONOR COORDINATOR Patient Outreach [facility] Care Management - Advanced Care Team [address] [place] [address] Cecelia Collins LSW Complex Care Management (Initial Clinician Outreach) 09/22/2024 Patient Outreach [facility] Care Management - Advanced Care Team [address] [place] [address] Hayley Angel Complex Care Management ([facility] Engagement Outreach ) from Last 3 Months [...] on file Legal Sex Male 7:13 AM MAJOR DONOR COORDINATOR Gender Identity Not on file Sexual Orientation [...] Description 12/22/2024 3:30 PM CDT Office Visit [facility] [address] [address] [place] [address] [place], [place] [phone] Health Maintenance Due Date Last Done Comments [...] CDT LIPID PANEL EMANUEL 08/18/2023 5:09 PM MAJOR DONOR COORDINATOR LC HIV-1/O/2, 4TH GENERATION Routine 03/29/2023 4:40 PM CDT Screening for HIV (human immunodeficiency virus) COLONOSCOPY 03/20/2023 12:17 PM CDT ANTI HCV Routine 10/10/2006 2:36 PM MAJOR DONOR COORDINATOR Venereal Disease, Unspecified from Last 3 Months or Most Recently Relevant to Health Maintenance Results * (ABNORMAL) HEMOGLOBIN A1C (12/09/2024 2:41 PM CDT) HEMOGLOBIN A1C 13.9(H) <5.7 % of total Hgb [facility] Comment: For someone without known diabetes, [...] Dominguez MD CHEMISTRY Final Result [facility] [address] [place] [address], [place] [phone] [facility] [address] [place] [address] * (ABNORMAL) MAGNESIUM (12/09/2024 2:41 PM CDT) MAGNESIUM 1.1(L) 1.5 - 2.5 mg/dL [facility] Blood BLOOD SPECIMEN / Unknown 12/09/2024 2:41 PM CDT 12/09/2024 2:42 PM CDT Talha Dominguez MD CHEMISTRY Final Result [facility] [address] [place] [address], [place] [phone] [facility] [address] [place] [address] * (ABNORMAL) BASIC METABOLIC PANEL (12/09/2024 2:41 PM CDT) GLUCOSE 596(HH) 65 - 99 mg/dL [facility] Comment: Verified by repeat analysis. Fasting reference interval For someone without known diabetes, a glucose value >125 mg/dL indicates that they may have diabetes and this should be confirmed with a follow-up test. UREA NITROGEN (BUN) 23 7 - 25 mg/dL [facility] CREATININE 1.34(H) 0.60 - 1.29 mg/dL [facility] EGFR 66 > OR = 60 mL/min/1.7 3m2 [facility] BUN/CREATININE RATIO 17 6 [...] Talha Dominguez MD CHEMISTRY Final Result [facility] [address] [place] [address], [place] [phone] [facility] [address] [place] [address] * SCAN-LABORATORY REPORT (12/09/2024 12:00 AM CDT) us Scanner OTHER Final Result * Lipid Panel (08/18/2023 5:09 PM MAJOR DONOR COORDINATOR) Pathologist [facility] CHOLESTEROL,TOTAL 160 100 - 199 mg/dL 08/19/2023 8:30 AM [facility] Comment: Cholesterol, Total Reference Ranges Desirable <200 mg/dL Borderline 200-239 mg/dL High >=240 mg/dL TRIGLYCERIDES 129 <150 mg/dL 08/19/2023 8:30 AM [facility] HDL CHOLESTEROL 59 >40 mg/dL 8:30 AM [facility] NON-HDL CHOLESTEROL 101 <145 mg/dl 08/19/2023 8:30 AM [facility] CHOL/HDL RATIO 2.71 <4.50 08/19/2023 8:30 AM [facility] LDL CHOLESTEROL 75 <=130 mg/dL 08/19/2023 8:30 AM [facility] VLDL CHOLESTEROL 26 <=30 mg/dL 08/19/20 8:30 AM [facility] Blood BLOOD SPECIMEN / Unknown Venipuncture / Unknown 08/18/2023 5:09 PM MAJOR DONOR COORDINATOR 08/18/2023 5:11 PM MAJOR DONOR COORDINATOR us Meng Dudley [facility] DRY PRIMER POWDER BLENDER CHEMISTRY Final Re sult [facility] [address] [place], [place] [id number] * LC HIV-1/O/2, 4TH GENERATION (03/29/2023 4:40 PM CDT) HIV Scr 4th Gen Non Reactive Non Reactive 04/04/2023 3:08 AM CDT [facility] Comment: HIV Negative HIV-1/HIV-2 antibodies and HIV-1 p24 antigen were NOT detected. There is no laboratory evidence of HIV infection. Blood BLOOD SPECIMEN / Unknown Venipuncture / Unknown 03/29/2023 4:40 PM CDT 03/29/2023 4:41 PM CDT Narrative [facility] - 04/04/2023 3:08 AM CDT Performed at: [address] [place] [address], [place] [id number] Attraction Worker: Marcos Cruz MD, Phone: [phone] us [facility] Final Resu lt [facility]) [facility] [place] [address], [place] * COLONOSCOPY (03/20/2023 12:17 PM CDT) [...] adequate candidate for conscious sedation. The endoscope [id number] was passed through the anus andadvanced to [...] Result * ANTI HCV (10/10/2006 2:36 PM MAJOR DONOR COORDINATOR) ANTI HCV Non-reactiv e [facility] Blood specimen (specimen) BLOOD SPECIMEN / Unknown 10/10/2006 2:36 PM MAJOR DONOR COORDINATOR 10/10/2006 2:25 PM MAJOR DONOR COORDINATOR Narrative [facility] - 10/15/2006 6:52 AM MAJOR DONOR COORDINATOR Testing Performed By [place], [place] Dre Contreras MD SEND OUTS Final Resul t [facility] [address] [place] [address] from Last 3 Months or Most Recently Relevant to Health Maintenance Insurance [facility] WORKERS COMP WORKERS COMP [employer] WORKERS COMP WORKERS COMP [facility] [employer] INS [facility] STATE FARM Advance Directives * Full Code [...] Code Status Discussion: Reviewed Preferences Care Teams Knot Bumper Relationship Specialty Start Date End Date Alanis Archuleta [place] [address] PCP - General Family Practice 06/20/24 Anushka Krueger, RN [address] [place] [id number] Tobacco Packer 11/18/21 Cecelia Collins, VP CUSTOMER DEVELOPMENT [address] [place], [place] [phone] Complex Care Management Neon Sign Worker 09/22/24 Rachel Davis, JERMAINE [address] [place], [place] [phone] Complex Care Management Registered Nurse 09/26/24 Yosvany Alcocer, PharmD [address] [place] [address] Pharmacist Medication Management Pharmacology 10/02/24 10/02/27
--- OUTSIDE RECORDS SUMMARY | 2024-12-18 18:47 | XMS_ITS | Continuity of Care Document ---
Author Organization [facility] Address [address] [address] [place] [address] Phone Care Team Providers Care Check And Transfer Beader Name Role Phone No Information Unavailable Unavailable [...] Diagnoses Date Provider Providers Copied on Encounter [facility], [address] [address], [place], [place], [id number], [place] tel:[phone] No Information 3 No Information [facility], [address] [address], [place], [place], [id number], [place] tel:[phone] [facility] Pancreatic abnormality 3 Gerson Reyes. [address] [facility], [address], [id number], [place]. tel:[phone] Office Cons New/estab Mod [facility], [address] [address], [place], [place], [address], [place] tel:[phone] [facility] GI Symptoms or Concerns (chief complaint) Recurrent vomitingWeight lossHeartburn 3 Gerson Reyes. [address] [facility], [facility] [address], [place], [id number], [place]. tel:[phone] Referring Provider: Lizbet Rich [facility], [address] [place] [address], [address]. tel:[phone] [facility], [address] [address], [place], [address], [place] tel:[phone] [facility] No Information 3 Mehdi López. [address] [address], [place], [id number], . tel:[phone] Family History Family Member Type Diagnosis Age [...] Registry Payers Payer name Insurance type Covered democrat ID Authoriza tion(s) No Information Social History [...]
--- OUTSIDE RECORDS SUMMARY | 2024-12-18 18:47 | XMS_ITS | Clinical Summary ---
Author Organization [facility] Address [address] [place] [address] Care Team Providers Care Profile Grinder Technician Name Role Phone Elsewhere, Pcp Primary Care Provider Unavailabl e Source Comments Patient records contain information from all sites at [facility]. For routine questions regarding patient records, call [phone] during business hours, M-F 8:00 AM - 5:00 PM Central Time. Record requests for emergency care only can be directed to [phone] at any time.[facility] Allergies Active Allergy Reactions Criticality Noted [...] on file Legal Sex Male 9:28 PM CLINICAL SUPPORT TECH Gender Identity Not on file Sexual Orientation [...] M.D. LAB BLOOD ADD-ON Final R esult [facility] [address] [place] [address], [facility] [address] [place] [address] from Last 3 Months or Most Recently Relevant to Health Maintenance Insurance [facility] Care Teams Profile Grinder Technician Relationship Specialty Start Date End Date Elsewhere, Pcp PCP - General Internal Medicine 05/16/23
[2024-12-18] MEDS: INSULIN GLARGINE,HUM.REC.ANLOG 100 UNIT/ML INSULN.PEN 20 UNIT SUBCUT (22:04)
--- NOTE | 2024-12-18 22:21 | P.IMHP_ITS ---
Assessment and Plan Assessment and plan (1) Hyperglycemia: Problem comment: Unclear if due to noncompliance or under treatment. Will increase insulin doses and monitor how he responds. Status: Acute (2) Diabetes mellitus: Problem comment: Longstanding diagnosis type 2 but always treated with insulin. Over the past year hemoglobin A1c has been between 13 and 14. Status: Acute (3) Cognitive developmental delay: Problem comment: Lacks insight into complexity of diabetes management Status: Acute (4) Intractable vomiting: Problem comment: Longstanding problem which has had normal evaluation including a normal gastric emptying study. Suspicious for diabetic gastroparesis Status: Acute (5) Noncompliance with diabetes treatment: Problem comment: Patient reports that he has been compliance with diabetes management. At this time difficult to assess why he is been unable to monitor blood sugars or ach ieve better blood sugar control. Status: Acute Plan Patient is admitted to the hospital for management of hyperglycemia. In the absence of immediate complications I am going to treat him with subcutaneous insulin and sliding scale insulin. Increase mealtime and basal insulin modestly. Monitor for immediate complications. Correct low magnesium with intravenous magnesium. Restart oral magnesium. Total Time Spent Total Time Spent: Total time spent today is 90 minutes in coordination of care, review of outside records, discussing with patient and significant other and other providers ongoing evaluation and management of hyperglycemia Hospitalist- H&P: HPI History of Present Illness Date Seen: 12/18/24 Chief complaint: High blood sugar Narrative: Bran Bray is a 44 year old male with diabetes mellitus admitted to the hospital with hyperglycemia. Patient reports that he has type 2 diabetes since after high school but he has always been treated with insulin. In reviewing his records I see is hemoglobin A1c in the past year has been consistently between 13 and 14. He tells me he is compliant with his diabetes management, reliably taking his insulin, metformin, Jardiance. His recent symptoms include thirst, dry mouth, fatigue getting worse over the past couple weeks. He has not had a fever, respiratory infection, gastrointestinal illness. No chest pain or abdominal pain. He has a continuous glucose monitor. This was upgraded from a Anurag 2 to a Anurag 3 about a month ago any tells me it is not working. He has the ability to do fingerstick blood sugars but tells me he is not doing this even when he feels like he has a low sugar or the meter says he has a low sugar. He does occasionally have low blood sugars and will hold his insulin when that occurs. He has a longstanding problem with vomiting. This primarily occurs in the morning when he gets up. He has been evaluated by [facility] and then by [facility]. Notes from [facility] from June of 2023 are reviewed. His symptoms suggest diabetic gastroparesis but testing for that was apparently unremarkable. He was also on aGLP 1 agonist at that time and is no longer on it but still having vomiting. When he has an episode of vomiting the morning he will often call in sick to work. He is concerned he is losing his job because of this. He has had previous history of low magnesium and low potassium but has been taken off of his supplements for that. I suspect his electrolyte problems are related to his uncontrolled hyperglycemia. Today his magnesium is quite low at 1.0. He is scheduled to see an bobbin hauler at the [facility] on Sunday in 3 days. I have encouraged him to bring his continuous glucose monitor to this appointment [facility] Medical History (Updated 12/18/24 @ 22:42 by Anuj Renae MD) Noncompliance with diabetes treatment ?Z91.199 - Patient's noncompliance with other medical treatment and regimen due to unspecified reason (ICD-10) Hyperlipidemia ?E78.5 - Hyperlipidemia, unspecified (ICD-10) Anxiety ?F41.9 - Anxiety disorder, unspecified (ICD-10) Hypertension ?I10 - Essential (primary) hypertension (ICD-10) Intractable vomiting ?R11.10 - Vomiting, unspecified (ICD-10) Peripheral neuropathy ?G62.9 - Polyneuropathy, unspecified (ICD-10) Depression ?F32.A - Depression, unspecified (ICD-10) Diabetes mellitus ?E11.9 - Type 2 diabetes mellitus without complications (ICD-10) Cognitive developmental delay ?F81.9 - Developmental disorder of scholastic skills, unspecified (ICD-10) Surgical History (Updated 12/18/24 @ 22:31 by Anuj Renae MD) History of hernia repair ?Z98.890 - Other specified postprocedural states (ICD-10) ?Z87.19 - Personal history of other diseases of the digestive system (ICD-10) Family History (Updated 12/18/24 @ 22:32 by Anuj Renae MD) Maternal Grandmother Diabetes Paternal Grandfather Diabetes Social History (Updated 12/18/24 @ 22:33 by Anuj Renae MD) Narrative: He lives with his significant other, Sofy. She is healthcare power of managing attorney. She tries to help him set up is medicines as well. Code status is full. He does not smoke. He drinks alcohol less than once a week. Smoking Status: Never smoker Do you use any of these nicotine containing products: None How often do you have a drink containing alcohol: never How often do you have six or more drinks on one occasion: Never AUDIT-C Alcohol total score: 0 Non-prescribed substance use: denies use Meds Home Medications and Allergies Home Medications ?Medication ?Instructions ?Recorded ?Confirmed ?Type empagliflozin 25 mg tablet 25 mg PO DAILY 12/18/24 12/18/24 History (Jardiance) insulin aspart U-100 100 unit/mL subcut 12/18/24 History (3 mL) subcutaneous pen (Novolog FlexPen U-100 Insulin aspart) insulin glargine 100 unit/mL (3 unit subcut 12/18/24 History mL) subcutaneous pen (Lantus Solostar U-100 Insulin) metformin 500 mg tablet,extended mg PO 12/18/24 History release 24 hr mirtazapine 45 mg tablet 45 mg PO QPM 12/18/24 12/18/24 History vitamin patch 12/18/24 History Allergies Allergy/AdvReac Type Severity Reaction Status Date / Time bee venom protein (honey bee) Allergy Anaphylaxis Verified 12/18/24 16:49 Exam Narrative: Exam Narrative: He is alert and appears in no distress. He gives his own history. He is able to recall some recent events but does not recall significant portions of past medical history and evaluation. Head is without trauma. Eyes normal. Oropharynx normal except for dry mucous membranes. Neck is supple without mass or adenopathy. Respirations are clear to auscultation. Cardiovascular: S1, S2, regular rate and rhythm. Abdomen: Bowel sounds active. Abdomen is soft without tenderness or mass. Extremities normal. He has subjective sensation to soft touch. Intact pedal pulses. No edema. Const: Vital Signs, click to edit/add: Vital Signs - 24 hr 12/18/24 16:35 12/18/24 17:56 12/18/24 17:57 Temperature 99.1 F Pulse Rate 97 98 Pulse Rate [Pulse Oximeter] 106 H Respiratory Rate 20 6 L 0 L Blood Pressure 153/100 H Blood Pressure [Ri ght Upper Arm] 130/80 Pulse Oximetry 97 95 96 Oxygen Delivery Me thod Room Air 12/18/24 18:00 12/18/24 18:01 12/18/24 18:15 Temperature Pulse Rate 99 98 104 H Pulse Rate [Pulse Oximeter] Respiratory Rate 5 L 0 L 16 Blood Pressure 131/92 H Blood Pressure [Ri ght Upper Arm] Pulse Oximetry 95 95 98 Oxygen Delivery Me thod 12/18/24 18:16 12/18/24 18:30 12/18/24 18:31 Temperature Pulse Rate 103 H 104 H 103 H Pulse Rate [Pulse Oximeter] Respiratory Rate 10 L 20 9 L Blood Pressure 141/102 H 144/94 H Blood Pressure [Ri ght Upper Arm] Pulse Oximetry 96 96 97 Oxygen Delivery Me thod 12/18/24 18:45 12/18/24 18:46 12/18/24 19:54 Temperature Pulse Rate 100 100 Pulse Rate [Pulse Oximeter] Respiratory Rate 11 L 9 L 20 Blood Pressure 125/101 H Blood Pressure [Ri ght Upper Arm] Pulse Oximetry 98 95 Oxygen Delivery Me thod Documenting provider has reviewed patient's vital signs: yes Hospitalist - H&P: Result Labs Labs: Short CBC 12/18/24 Range/Units 17:40 WBC 9.16 (4.50-11.00) K/uL Hgb 13.6 (13.5-17.5) gm/dL Hct 40.5 (37.0-53.0) % Plt Count 336 (140-440) K/uL BMP 12/18/24 17:40 Sodium 128 L Potassium 4.3 Chloride 86 L Carbon Dioxide 32 BUN 29 H Creatinine 1.2 Glucose 668 H* Calcium 9.1 Liver Function 12/18/24 Range/Units 17:40 Total Bilirubin 0.5 (0.1-1.5) mg/dL AST 54 H (12-35) U/L ALT 47 (4-50) U/L Alkaline Phosphatase 141 (40-150) U/L Albumin 4.2 (3.3-5.0) g/dL Urine 12/18/24 Range/Units 17:34 Urine Color Yellow (Yellow) Urine Appearance Clear (Clear) Urine pH 5.5 (5.0-8.5) Ur Specific [place] <= 1.005 (1.000-1.030) Urine Protein Negative (Negative) Urine Glucose (UA) 2+ A (Negative)
[2024-12-18] MEDS: MAGNESIUM IV 4 GM/100 ML PIGGYBACK IVPB (23:14)
[2024-12-19] VITALS (12 sets, daily range): BP systolic 102–129; BP diastolic 62–83; PULSE 81–100; RESP 16–18; TEMP 36.3–37.3; O2SAT 93–98
--- NOTE | 2024-12-19 05:53 | PC.NURSE ---
Patient arrived on the floor at 1999 with a BG of 416. BG down to 145 at 0200. Denies pain. Denies N/V. Eating and voiding.
[2024-12-19 06:47] LABS: Basophils Absolute Auto 0.03 K/uL (0.00-0.30); Basophils Percent Auto 0.3 % (0.0-3.0); Eosinophils Absolute Auto 0.37 K/uL (0.00-0.50); Eosinophils Percent Auto 4.2 % (0.0-7.0); Hematocrit 37.2 % (37.0-53.0); Hemoglobin* 12.4 gm/dL (13.5-17.5); Immature Granulocytes Abs Auto 0.01 K/uL (0.00-0.30); Immature Granulocytes Pct Auto 0.1 %; Lymphocytes Percent Auto 47.7 % (20-44); Mean Corpuscular HGB Conc 33 gm/dL (32-36); Mean Corpuscular Hemoglobin 28 pg (26-34); Mean Corpuscular Volume 85 fL (80-100); Neutrophils Percent Auto 40.7 % (42.0-72.0); Platelet Count* 317 K/uL (140-440); RDW Coefficient of Variation % 12.1 % (11.5-15.5); Red Blood Count 4.38 m/uL (4.30-5.90); White Blood Count* 8.85 K/uL (4.50-11.00)
[2024-12-19 06:53] LABS: Slide Review Reflex No
[2024-12-19 07:13] LABS: Chloride* 98 mmol/L (96-114); Potassium* 3.2 mmol/L (3.6-5.1); Sodium* 138 mmol/L (135-149)
[2024-12-19 07:16] LABS: Anion Gap 4 mEq/L (7-15); Blood Urea Nitrogen* 22 mg/dL (5-24); Carbon Dioxide* 36 mmol/L (20-32); Creatinine* 0.9 mg/dL (0.5-1.5); Est. Creatinine Clearance* 109.23; Estimated Glomerular Filt Rate 107 ml/min; Glucose* 108 mg/dL (60-115)
[2024-12-19 07:17] LABS: Magnesium* 1.6 mg/dL (1.5-2.6)
[2024-12-19] MEDS: POTASSIUM CHLORIDE 10 MEQ CAPSULE ER 40 MEQ PO (09:22)
[2024-12-19] MEDS: MAGNESIUM OXIDE 400 MG TABLET PO (09:23)
[2024-12-19] MEDS: EMPAGLIFLOZIN 25 MG TABLET PO (09:23)
[2024-12-19] MEDS: INSULIN GLARGINE,HUM.REC.ANLOG 100 UNIT/ML INSULN.PEN 40 UNIT SUBCUT (09:24)
[2024-12-19] MEDS: INSULIN ASPART 100 UNIT/ML 15 UNIT SUBCUT ×3 (09:34→17:27)
[2024-12-19] MEDS: SODIUM CHLORIDE 0.9 % (FLUSH) 10 ML SYRINGE 5 ML IVF ×2 (09:59→21:47)
[2024-12-19] MEDS: INSULIN ASPART 100 UNIT/ML SUBCUT (12:18)
--- NOTE | 2024-12-19 12:44 | PC.NURSE ---
I met with Bran today related to behaviors towards nurses of raising his voice and being disrespectful. I liestened to his concerns and addressed them with him, they were concerning his medication Metformin and it killing him along with insulin and his not wanting a sliding scale when he discharges, this was passed on to the primary nurse to have address at discharge. Bran stated he had been diagnosed with Bipolar disorder and Borderline disorder, which was also passed on to the provider. Bran expressed wanting to have visitor and I asked if I could contact someone or provide him a phone, which he said I have my own phone and they cannot come until later. He then asked for a chaplan or social welfare research worker but could not give me a name or preference to call he said he would let me know. I reminded Bran that he should not raise his voice at any of the care team and we will treat him with respect also, he seemed agreeable to this. HE also mentioned not being informed and that he wasn't gettting frequent enough update only every 2 hours, I informed him the updates occur as we have results and work through his care, and that taking the medication and following the care plan are great way to proceed. He did state he may leave andgo somewhere else, I let him know that we would like if he stayed and received care until appropriate for discharge, but that he would not be held against his will and could leave against medical advice if he chose to. Plan addressed with primary nurses to continue to update plan of care and progress as able, discontinue telebox, address anxiety medication and need for Senna. Patient agreeable to plan of care, but appear to not comprehend situation or disease needs for diabetes, as evidence by I will eat what I want when I want when I get out of here. and If I will starve myself. I reminded him that is not appropriate and would not be beneficial, he was not receptive to this as that time, We did work through a meal order that would be beneficial to him and his disease, he was ok with this.
[2024-12-19] MEDS: DULOXETINE 30 MG CAPSULE DR 60 MG PO (14:13)
[2024-12-19] MEDS: SENNOSIDES/DOCUSATE TABLET 2 TAB PO (14:13)
--- NOTE | 2024-12-19 14:41 | PC.NURSE ---
End of shift: VS WNL. afebrile. Denies pain. Denies dizziness. Tolerating diabetic diet well. Ind in room. Pt required education and encouragement to comply with insulin administration.
--- NOTE | 2024-12-19 14:42 | NUTR.NU ---
RDn with MD consult for diabetes diet education. RDN attempted to visit with patient earlier today, however he declined at that time asking for RDN to come back at a later time because he was tired. RDN attempted twice after that and patient was sleeping on both attempts. RDN will attempt to visit with patient at a later date as appropriate.
--- NOTE | 2024-12-19 15:50 | PM.IMPN1 ---
Assessment and Plan Assessment and plan (1) Hyperglycemia: Problem comment: -12/18/2024: Unclear if due to noncompliance or under treatment. Will increase insulin doses and monitor how he responds. -12/19/2024: Blood glucose 668 on presentation. This morning was down to 108. Later was down to 93. Ongoing adjustments in his insulin regimen. Status: Acute (2) Diabetes mellitus: Problem comment: -12/18/2024: Longstanding diagnosis type 2 but always treated with insulin. Over the past year hemoglobin A1c has been between 13 and 14. -12/19/2024: Works with his clinicians. Has a continuous glucose monitoring device that he states has not been working. Plans to see his clinician this coming Sunday about this. Status: Acute (3) Cognitive developmental delay: Problem comment: -12/18/2024: Lacks insight into complexity of diabetes management -12/19/2024: Threatened to leave AMA twice today... Lacks ability to process complexity of his underlying condition without becoming extremely anxious about it Status: Acute (4) Intractable vomiting: Problem comment: -12/18/2024: Longstanding problem which has had normal evaluation including a normal gastric emptying study. Suspicious for diabetic gastroparesis -12/19/2024: Not a problem today. Tolerating oral intake. Status: Acute (5) Noncompliance with diabetes treatment: Problem comment: -12/18/2024: Patient reports that he has been compliance with diabetes management. At this time difficult to assess why he is been unable to monitor blood sugars or achieve better blood sugar control. -12/19/2024: Will need to continue to try to help him with a regimen that is supportive and yet able to provide meaningful therapeutic benefit. Status: Acute Plan 1. Reviewed impression, situation, recommendations with patient 2. Answered his questions 3. At the moment he is agreeable to proceed as planned Total Time Spent Total Time Spent: 60 minutes Subjective Date Seen: 12/19/24 Interval history: Admission history of present illness: ?44 year old male with diabetes mellitus admitted to the hospital with hyperglycemia. Patient reports that he has type 2 diabetes since after high school but he has always been treated with insulin. In reviewing his records I see is hemoglobin A1c in the past year has been consistently between 13 and 14. He tells me he is compliant with his diabetes management, reliably taking his insulin, metformin, Jardiance. ?His recent symptoms include thirst, dry mouth, fatigue getting worse over the past couple weeks. He has not had a fever, respiratory infection, gastrointestinal illness. No chest pain or abdominal pain. He has a continuous glucose monitor. This was upgraded from a Anurag 2 to a Anurag 3 about a month ago any tells me it is not working. He has the ability to do fingerstick blood sugars but tells me he is not doing this even when he feels like he has a low sugar or the meter says he has a low sugar. He does occasionally have low blood sugars and will hold his insulin when that occurs. He has a longstanding problem with vomiting. This primarily occurs in the morning when he gets up. He has been evaluated by [facility] and then by [facility]. Notes from [place] from June of 2023 are reviewed. His symptoms suggest diabetic gastroparesis but testing for that was apparently unremarkable. He was also on aGLP 1 agonist at that time and is no longer on it but still having vomiting. When he has an episode of vomiting the morning he will often call in sick to work. He is concerned he is losing his job because of this. He has had previous history of low magnesium and low potassium but has been taken off of his supplements for that. I suspect his electrolyte problems are related to his uncontrolled hyperglycemia. Today his magnesium is quite low at 1.0. ?He is scheduled to see an subacute nurse at the [facility] on Sunday in 3 days. I have encouraged him to bring his continuous glucose monitor to this appointment.? Hospital day 2 (12/19/2024). He tells me he is hungry. He feels better. He is worried about his blood sugars. Tells me his blood sugar monitoring device stopped working. Unclear about his adherence to treatment recommendations not only for his diabetes but the other conditions that he suffers from. Denies abdominal pain, nausea, vomiting. Denies any other physical concerns at this time. Mainly anxious about not having low blood sugars. Exam Narrative: Exam Narrative: Examined patient his hospital room. Saw him 3 times throughout the day in an effort to deal with his physiological as well as his psychological concerns. Anxious. Afraid. Cooperative. Talkative. Lungs are clear to auscultation. Heart tones with regular rhythm. Abdomen with active bowel sounds, soft, nontender. Independent with transfer, station, and gait. No lower extremity edema. Skin is dry and intact. No obvious infections. Const: Vital Signs, click to edit/add: Vital Signs - 24 hr 12/18/24 16:35 12/18/24 17:56 12/18/24 17:57 Temperature 99.1 F Pulse Rate 97 98 Pulse Rate [Pulse Oximeter] 106 H Respiratory Rate 20 6 L 0 L Blood Pressure 153/100 H Blood Pressure [Ri ght Arm] Blood Pressure [Ri ght Upper Arm] 130/80 Pulse Oximetry 97 95 96 Oxygen Delivery Me thod Room Air 12/18/24 18:00 12/18/24 18:01 12/18/24 18:15 Temperature Pulse Rate 99 98 104 H Pulse Rate [Pulse Oximeter] Respiratory Rate 5 L 0 L 16 Blood Pressure 131/92 H Blood Pressure [Ri ght Arm] Blood Pressure [Ri ght Upper Arm] Pulse Oximetry 95 95 98 Oxygen Delivery Me thod 12/18/24 18:16 12/18/24 18:30 12/18/24 18:31 Temperature Pulse Rate 103 H 104 H 103 H Pulse Rate [Pulse Oximeter] Respiratory Rate 10 L 20 9 L Blood Pressure 141/102 H 144/94 H Blood Pressure [Ri ght Arm] Blood Pressure [Ri ght Upper Arm] Pulse Oximetry 96 96 97 Oxygen Delivery Me thod 12/18/24 18:45 12/18/24 18:46 12/18/24 19:54 Temperature Pulse Rate 100 100 Pulse Rate [Pulse Oximeter] Respiratory Rate 11 L 9 L 20 Blood Pressure 125/101 H Blood Pressure [Ri ght Arm] Blood Pressure [Ri ght Upper Arm] Pulse Oximetry 98 95 Oxygen Delivery Me thod 12/18/24 21:27 12/18/24 23:18 12/19/24 00:00 Temperature 98.2 F 98.9 F Pulse Rate Pulse Rate [Pulse Oximeter] 99 80 87 Respiratory Rate 18 18 Blood Pressure Blood Pressure [Ri ght Arm] 143/99 H 123/79 113/76 Blood Pressure [Ri ght Upper Arm] Pulse Oximetry 96 96 Oxygen Delivery Me thod Room Air Room Air 12/19/24 00:30 12/19/24 01:00 12/19/24 02:00 Temperature Pulse Rate 87 Pulse Rate [Pulse Oximeter] Respiratory Rate Blood Pressure Blood Pressure [Ri ght Arm] 111/80 107/75 Blood Pressure [Ri ght Upper Arm] Pulse Oximetry Oxygen Delivery Me thod 12/19/24 02:36 12/19/24 07:00 12/19/24 07:00 Temperature 97.4 F L 98.4 F Pulse Rate Pulse Rate [Pulse Oximeter] 81 82 82 Respiratory Rate 16 16 16 Blood Pressure Blood Pressure [Ri ght Arm] 102/75 121/82 Blood Pressure [Ri ght Upper Arm] Pulse Oximetry 95 98 Oxygen Delivery Me thod Room Air Room Air 12/19/24 10:26 12/19/24 11:00 Temperature 98.8 F Pulse Rate 100 Pulse Rate [Pulse Oximeter] 98 Respiratory Rate 18 Blood Pressure Blood Pressure [Ri ght Arm] 127/80 Blood Pressure [Ri ght Upper Arm] Pulse Oximetry 94 Oxygen Delivery Me thod Room Air Labs Labs: Laboratory Results - last 24 hr 12/18/24 12/18/24 12/19/24 17:34 17:40 06:17 WBC 9.16 8.85 RBC 4.81 4.38 Hgb 13.6 12.4 L Hct 40.5 37.2 MCV 84 85 MCH 28 28 MCHC 34 33 RDW Coeff of Tim 12.0 12.1 Plt Count 336 317 Neut % (Auto) 59.2 40.7 L Lymph % (Auto) 29.8 47.7 H Person % (Auto) 7.2 7.0 Eos % (Auto) 2.7 4.2 Baso % (Auto) 0.3 0.3 Neut # (Auto) 5.42 3.60 Lymph # (Auto) 2.73 4.20 H Person # (Auto) 0.70 0.60 Eos # (Auto) 0.25 0.37 Baso # (Auto) 0.03 0.03 Abs Immat Gran (auto) 0.07 0.01 Imm/Tot Granulo (auto) 0.8 0.1 VBG pH 7.430 VBG pCO2 52 H VBG pO2 39.9 VBG HCO3 35 H Sodium 128 L 138 Potassium 4.3 3.2 L Chloride 86 L 98 Carbon Dioxide 32 36 H Anion Gap 10 4 L BUN 29 H 22 Creatinine 1.2 0.9 Estimated Creat Clear 81.92 109.23 Estimated GFR 76 107 Glucose 668 H* 108 Lactate 2.1 H Calcium 9.1 9.0 Phosphorus 3.3 Magnesium 1.0 L 1.6 Total Bilirubin 0.5 AST 54 H ALT 47 Alkaline Phosphatase 141 Total Protein 7.2 Albumin 4.2 Urine Color Yellow Urine Appearance Clear Urine pH 5.5 Ur Specific [place] <= 1.005 Urine Protein Negative Urine Glucose (UA) 2+ A Urine Ketones Negative Urine Blood Negative Urine Nitrite Negative Urine Bilirubin Negative Urine Urobilinogen 0.2 Ur Leukocyte Esterase Negative Urine RBC 0-2 Urine WBC 0-2 Ur Squamous Epith Cells Few Urine Bacteria None SARS-CoV-2 (PCR) Negative SARS-CoV-2 Influenza Type A (PCR) Negative PCR FLU A Influenza Type B (PCR) Negative PCR FLU B RSV (PCR) Negative PCR RSV
--- NOTE | 2024-12-19 16:34 | PC.SOCIAL ---
Social work: Met with pt at his request. Pt states he is concerned about losing his job because of missing work for his health issues. Pt states he has reached out to his HR department but does not want to answer their questions about his medical concerns. He does not think his work should be able to ask about this. Informed pt that the hospitalist can provide him with information at discharge to give provider about why he was here and unable to work. Pt states he does not want to give this information to his employer. Pt requested rn social services contact his [facility] case aide, Rebeca [phone]. Pt requested rn social services share his concern about his job and answer any questions the case aide has, as he is hoping she will assist him with his employer. Called Rebeca, who shared that she is in good contact with pt and knows him well. She will call him and encourage him to request information from the hospitalist to share with his employer and she will meet with him when discharged to assist him in speaking with his employer. Rebeca also provided information on his other [facility] case aide, Allison who can be reached at [phone].
[2024-12-19] MEDS: ACETAMINOPHEN 325 MG TABLET 650 MG PO (17:27)
[2024-12-19] MEDS: MIRTAZAPINE 15 MG TABLET 45 MG PO (17:27)
[2024-12-20 02:20] VITALS: BP 110/70; PULSE 74; RESP 16; TEMP 36.6; O2SAT 95
[2024-12-20 05:08] LABS: Chloride* 99 mmol/L (96-114); Potassium* 3.8 mmol/L (3.6-5.1); Sodium* 138 mmol/L (135-149)
[2024-12-20 05:11] LABS: Blood Urea Nitrogen* 24 mg/dL (5-24); Creatinine* 0.9 mg/dL (0.5-1.5); Est. Creatinine Clearance* 109.23; Estimated Glomerular Filt Rate 107 ml/min
[2024-12-20 05:12] LABS: Anion Gap 9 mEq/L (7-15); Calcium* 9.1 mg/dL (8.4-10.6); Carbon Dioxide* 30 mmol/L (20-32); Glucose* 191 mg/dL (60-115)
--- NOTE | 2024-12-20 05:45 | PC.NURSE ---
End of shift note [id number]: Pt transfers/ambulates independently. Pt refused 2300 VS with engine cleaner and house sup updated. No verbal or nonverbal indications of pain noted. Pt tolerating diabetic diet per order. Blood glucose of 173 with 0200 check though pt refused SS insulin per order despite education provided. Pt refused to have weight obtained and became irritable when blurb writer asked pt if he had urinated overnight stating, ?Why do you guys ask me that question?? Passport Application Examiner then educated pt about possibility of urinary retention if he has not voided and checking bladder for this though he became irritable again and said, ?I?m fine!? when approached/educated by blurb writer. Call light within reach. ?
[2024-12-20 07:00] VITALS: BP 146/99; PULSE 90; RESP 16; TEMP 37; O2SAT 95
[2024-12-20] MEDS: METFORMIN ER 500 MG PO (09:51)
[2024-12-20] MEDS: DULOXETINE 30 MG CAPSULE DR 60 MG PO (09:51)
[2024-12-20] MEDS: SENNOSIDES/DOCUSATE TABLET 2 TAB PO (09:52)
[2024-12-20] MEDS: SODIUM CHLORIDE 0.9 % (FLUSH) 10 ML SYRINGE 5 ML IVF (09:52)
[2024-12-20] MEDS: MAGNESIUM OXIDE 400 MG TABLET PO (09:52)
[2024-12-20] MEDS: EMPAGLIFLOZIN 25 MG TABLET PO (09:52)
[2024-12-20] MEDS: INSULIN GLARGINE,HUM.REC.ANLOG 100 UNIT/ML INSULN.PEN 40 UNIT SUBCUT (09:53)
[2024-12-20] MEDS: INSULIN ASPART 100 UNIT/ML 15 UNIT SUBCUT ×2 (09:54→12:18)
--- NOTE | 2024-12-20 11:26 | PM.DS1 ---
DS: Providers Provider Date Seen: 12/20/24 Date of admission: 12/18/24 19:53 Primary care physician: Lizbet Rich PA-C Admitting Clinician: Anuj Renae MD Consults: 12/18/24 21:04 Consult to Nutrition [CONS] Routine Comment: Reason for consult:: Nutritional Consult Attending Physician on discharge: Maura Frank MD DS: Diagnosis Discharge Diagnosis (1) Hyperglycemia: Status: Acute Problem details: -12/18/2024: Unclear if due to noncompliance or under treatment. Will increase insulin doses and monitor how he responds. -12/19/2024: Blood glucose 668 on presentation. This morning was down to 108. Later was down to 93. Ongoing adjustments in his insulin regimen. -12/20/2024: Blood glucose fairly controlled on Lantus 40 units (his home does is 35 units we increased it), in addition to the aspart 15 units t.i.d., Jardiance and metformin. (2) Diabetes mellitus: Status: Acute Problem details: -12/18/2024: Longstanding diagnosis type 2 but always treated with insulin. Over the past year hemoglobin A1c has been between 13 and 14. -12/19/2024: Works with his clinicians. Has a continuous glucose monitoring device that he states has not been working. Plans to see his clinician this coming Sunday about this. (3) Cognitive developmental delay: Status: Acute Problem details: -12/18/2024: Lacks insight into complexity of diabetes management -12/19/2024: Threatened to leave AMA twice today... Lacks ability to process complexity of his underlying condition without becoming extremely anxious about it (4) Intractable vomiting: Status: Resolved Problem details: -12/18/2024: Longstanding problem which has had normal evaluation including a normal gastric emptying study. Suspicious for diabetic gastroparesis -12/19/2024: Not a problem today. Tolerating oral intake. -12/20/2024: No N/V (5) Noncompliance with diabetes treatment: Status: Acute Problem details: -12/18/2024: Patient reports that he has been compliance with diabetes management. At this time difficult to assess why he is been unable to monitor blood sugars or achieve better blood sugar control. -12/19/2024: Will need to continue to try to help him with a regimen that is supportive and yet able to provide meaningful therapeutic benefit. DS: Summary Hospital Course Hospital Course: Bran Bray is a 44 year old male with diabetes mellitus admitted to the hospital with hyperglycemia. Patient reports that he has type 2 diabetes since after high school but he has always been treated with insulin. In reviewing his records, hemoglobin A1c in the past year has been consistently between 13 and 14. He reported that he is compliant with his diabetes management, reliably taking his insulin, metformin, Jardiance. On admission his blood sugar was elevated more than 600, no diabetic ketoacidosis. We resumed the patient's medications and we increased his insulin Lantus does to 40 units subQ daily and his blood sugar was fairly controlled during his stay. I discussed with the patient the importance of compliance with all of his meds and discussed the risks of uncontrolled diabetes complications. Patient needs to follow-up with his PCP and with his underground mining section foreman, he has an appointment with the later in 2 days. Status at Discharge Functional status at discharge: independent ambulation Overall status at discharge: patient is back to baseline Time Spent with Patient Time attestation: Total time spent providing and/or coordinating discharge services: 50 Exam Narrative: Exam Narrative: Physical exam GENERAL: Comfortable, no acute distress. HEAD AND NECK: Atraumatic, normocephalic CARDIOVASCULAR: RRR. Normal S1, S2. No murmurs. RESPIRATORY: Clear to auscultation B/L. Good air entry B/L. No wheezes or rhonchi. GASTROINTESTINAL: Not distended, not tender to palpation. NEUROLOGY: Alert, awake, oriented. Normal speech. Const: Vital Signs, click to edit/add: Vital Signs - 24 hr 12/19/24 15:00 12/19/24 16:00 12/19/24 19:00 Temperature 99.1 F 97.8 F Pulse Rate [Pulse Oximeter] 98 92 Respiratory Rate 18 18 18 Blood Pressure [Ri ght Arm] 129/83 108/62 Pulse Oximetry 95 93 Oxygen Delivery Me thod Room Air Room Air 12/19/24 23:00 12/20/24 02:20 12/20/24 07:00 Temperature 97.9 F Pulse Rate [Pulse Oximeter] 92 74 90 Respiratory Rate 16 16 16 Blood Pressure [Ri ght Arm] 110/70 Pulse Oximetry 95 Oxygen Delivery Me thod Room Air 12/20/24 07:00 Temperature 98.6 F Pulse Rate [Pulse Oximeter] 90 Respiratory Rate 16 Blood Pressure [Ri ght Arm] 146/99 H Pulse Oximetry 95 Oxygen Delivery Me thod Room Air DS: Data Data Completed and Pending Labs on day of discharge: Labs from last 24 hours 12/20/24 04:32 Sodium 138 Potassium 3.8 Chloride 99 Carbon Dioxide 30 Anion Gap 9 BUN 24 Creatinine 0.9 Estimated Creat Clear 109.23 Estimated GFR 107 Glucose 191 H Calcium 9.1 Preliminary micro results at discharge 12/18/24 17:40 Blood Culture - Preliminary Blood NO GROWTH AFTER 24 HOURS Discharge Plan Discharge Disposition: Home, Self-Care Date of Admission: 12/18/24 19:53 Attending Provider on Discharge: Maura Frank Primary Care Provider: Lizbet Rich Condition: Improved Anticipated Discharge Date/Time: 12/20/24 11:12 Discharge Medications: Continued mirtazapine 45 mg tablet 45 mg PO QPM metformin 500 mg tablet extended release 24 hr 500 mg PO BIDWMEAL insulin aspart U-100 [Novolog FlexPen U-100 Insulin] 100 unit/mL (3 mL) insulin pen 15 unit SUBCUT TID Patient Comments: TAKE 15 UNITS WITH LUNCH (1030), SNACK/FASTFOOD (230 PM) AND DINNER (7PM) PER [facility], MOST RECENT OUTPATIENT DIRECTIONS. Jardiance 25 mg tablet 25 mg PO DAILY duloxetine [Cymbalta] 60 mg capsule,delayed release(DR/EC) 60 mg PO DAILY magnesium oxide 400 mg (241.3 mg magnesium) tablet 800 mg PO BID fenofibrate nanocrystallized [Tricor] 145 mg tablet 145 mg PO DAILY lisinopril 5 mg tablet 5 mg PO DAILY pravastatin 20 mg tablet 20 mg PO HS sennosides [senna] 8.6 mg tablet 17.2 mg PO BID PRN (Reason: constipation) Changed insulin glargine [Lantus Solostar U-100 Insulin] 100 unit/mL (3 mL) insulin pen 40 unit SUBCUT HS 30 Days Qty: 12 0RF Discharge Orders: Discharge Order (Routine); Ordered 12/20/24 Ordered By: Maura Frank Patient Education: Type 2 Diabetes Management for Adults (GEN) Additional Instructions: -you need to follow-up with your underground mining section foreman on SundayDecember 22. -we increased your long acting insulin, Lantus, to 40 units subcutaneous once a day. -please continue taking all your diabetes medication as prescribed. Activity Level: Activity as Tolerated Discharge Diet: Diabetic Follow Up Appointments: Lizbet Rich PA-C [Primary Care Provider] - Forms: Work/School Release, [facility] Info Instructions
[2024-12-20] MEDS: INSULIN ASPART 100 UNIT/ML SUBCUT (12:18)
--- NOTE | 2024-12-20 12:35 | PC.NURSE ---
Pt pleasant and cooperative this morning. VSS. Denies pain. Compliant with cares and medication. Patient discharged home at 1235 via self vehicle. Patient belongings and discharge information signed. Education reviewed, no questions or concerns at this time.
== END 2024-12-20 12:36 | disposition home or self-care (01) ==
LOC: ED 18:45 → MEDSURG 19:53
PROVIDERS: Admitting Provider Family Medicine; Emergency Provider Emergency Medicine; PCP Physician Assistant; Visit Provider Family Medicine
DX: E11.65 Type 2 diabetes mellitus with hyperglycemia (principal); Z91.199 Patient's noncompliance with other medical treatment and regimen due to unspecified reason; E86.0 Dehydration; R00.0 Tachycardia, unspecified; R11.10 Vomiting, unspecified; F81.9 Developmental disorder of scholastic skills, unspecified; Z79.84 Long term (current) use of oral hypoglycemic drugs; Z79.4 Long term (current) use of insulin; I10 Essential (primary) hypertension; E78.5 Hyperlipidemia, unspecified; M10.9 Gout, unspecified
CPT/HCPCS: 36415; 80048; 80053; 81001; 82803; 82947; 82962; 83605; 83735; 84100; 85025; 87040; 87631; 93005; 96361; 96365; 96366; 99283; 99285; A9270; G0378; J3475; J7030

== ENCOUNTER 2025-03-20 10:47 | Emergency (ER) | payer BC, SELFPAY ==
[2025-03-20] VITALS (15 sets, daily range): BP systolic 92–138; BP diastolic 72–94; PULSE 77–96; RESP 16–18; TEMP 36.7–37; O2SAT 86–99; BMI 24.4
--- OUTSIDE RECORDS SUMMARY | 2025-03-20 10:53 | XMS_ITS | Clinical Summary ---
Author Organization [employer] Address [address] [place] [address] Care Team Providers Care Facility Planner Name Role Phone Anushka Krueger Luis Enrique RN Unavailable Alanis Archuleta MD Primary Care Prov ider Yosvany Alcocer PharmD Unavailable [phone] Dann Lewis MD Unavailable [phone] Allergies Active Allergy Reactions Criticality Noted Date [...] to 8 hours per day. 90 Patch 3 05/08/20 24 Active ciclopirox (CICLODAN) 8 % topical solutionIndications :Onychomycosis Apply topically to affected area(s) at bedtime. 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 Take 30 minutes to 4 hours before sexual activity. Max 100mg/24hr. 10 Tablet 2 08/08/20 24 Active FreeStyle Anurag 3 Plus Sensor for continuous blood glucose monitor (CGM)Indications:Di abetes mellitus type 2 with complications (HC) To be used to read blood sugars, follow educational institution president directions. Change every 15 days 2 Each [...] per day 60 Tablet 12/11/19 25 Active pioglitazone 15 mg tabletIndications:T ype 2 diabetes mellitus without complication, with long-term current use of insulin (HC) Take 1 Tablet (15 mg) by mouth once daily. 30 Tablet 3 01/23/20 25 Active insulin aspart (U-100) 100 unit/mL (3 mL) penIndications:Diab etes mellitus type 2 with complications (HC) Novolog to 5 units at lunch (10:30AM), snack/fastfood (2:30PM), dinner (7PM) 15 mL 3 01/23/20 25 Active Lantus Solostar U-100 Insulin 100 unit/mL (3 mL) penIndications:Diab etes mellitus type 2 with complications (HC) Inject 25 units subcutaneous in the morning. Product desired: LANTUS SOLOSTAR 15 mL 01/23/20 25 Active clotrimazole 1 % creamIndications:Ti tami corporis Apply topically to affected area(s) two times daily. On leg rash. Use 1 finger tip medication until rash is gone. Refill it if needed. 85 g 1 02/05/20 25 Active DULoxetine 30 mg Delayed-release capsuleIndications: Radial nerve dysfunction, left Take 1 Capsule (30 mg) by mouth once daily. Take with 60mg capsule once daily. 30 Capsule 1 02/21/20 25 Active pregabalin 25 mg capsuleIndications: Radial nerve dysfunction, left Take 1 Capsule (25 mg) by mouth once daily. 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, with long-term current use of insulin 12/25/2024 Pancreatic hypoplasia 08/08/2024 Moderate episode of recurrent major depressive d isorder 11/30/2023 Suicidal ideation 08/13/2023 Intractable vomiting 06/15/2023 Chronic GERD 03/15/2023 Stage 3b chronic kidney disease 02/05/2023 Peripheral sensory neuropathy 09/20/2022 Primary insomnia 03/06/2022 Acute gout of left ankle 02/21/2022 Cognitive developmental delay 02/21/2022 Hypomagnesemia 02/21/2022 Pulmonary nodule 02/20/2022 Uncontrolled type 2 diabetes mellitus with hyper glycemia 09/28/2020 Generalized anxiety disorder 11/28/2018 HTN (hypertension) 08/24/2014 Hyperlipidemia 03/25/2013 Allergic rhinitis 03/24/2013 Resolved Problems Problem Noted Date Diagnosed Date Resolved Date HHS (hypothenar hammer syndrome) 08/13/2023 08/13/2023 Hyponatremia 08/13/2023 08/13/2023 Hyperosmolar hyperglycemic state (HHS) 08/13/2023 12/25/2024 Type 2 diabetes mellitus wit 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, with long-term current use of insulin 04/12/2023 06/15/2023 Encounter for screening colonoscopy 03/20/2023 12/25/2024 Sinusitis 02/21/2022 09/20/2022 Hypokalemia with shifts of f luid from extracellular to intracellular space 02/21/202211/2024 DKA (diabetic ketoacidosis) 02/20/2022 12/27/2022 Right shoulder pain 02/20/2022 09/20/20 Right ankle pain 02/20/2022 09/20/2022 Sepsis 02/20/2022 09/20/2022 Confusion 02/20/2022 09/20/2022 COVID-19 virus infection 08/24/2021 CKD (chronic kidney disease) stage 3, GFR 30-59 ml/min 09/28/2020 02/05/2023 Diabetes mellitus type 2, un controlled, without complications 09/26/2019 09/28/2020 Major depressive disorder, r ecurrent episode, moderate 11/28/2018 12/25/2024 YASH (generalized anxiety disorder) 08/02/2018 02/02/2020 Diabetes mellitus type 2, uncomplicated 03/25/2013 08/02/2018 Major depressive disorder, r ecurrent episode, mild 10/17/2007 02/02/2020 Adjustment disorder with mix ed anxiety and depressed mood 10/17/2007 08/02/2018 Encounters Date Type Department Care Team Description 03/20/2025 Nurse Triage [facility] [address] [place] [address] Alanis Archuleta MD High Blood Sugar 03/16/2025 3:30 PM CDT Office Visit [facility] [address] [place] [address] Alanis Archuleta MD Wrist Pain/problem (Left wrist pain/Pt causing more pain - inducing headaches. /Wants to look into chiropractor or acupuncture ) 03/16/2025 Travel 03/11/2025 3:30 PM CDT Phone Office Visit [facility] [address] [place] [address] Pierce Herzog PsyD, Individual Therapy; Phone Visit 03/11/2025 Telephone [facility] [address] [place] [address] Alanis Archuleta MD Message (Medication for pain) 03/11/2025 Travel 02/25/2025 Telephone [facility] [address] [place] [address] Dann Lewis MD 02/23/2025 Telephone [facility] [address] [place] [address] Alanis Archuleta MD Referral 02/23/2025 Telephone [facility] [address] [place] [address] Alanis Archuleta MD Shoulder Pain/problem (Other shoulder is painful, results of xray) 02/20/2025 3:30 PM CDT Ancillary Procedure [facility] [address] [place] [address] 02/20/2025 2:40 PM CDT Office Visit [facility] [address] [place] [address] Alanis Archuleta MD Arm Pain/problem (Left hand and arm pain - causing headaches ) 02/20/2025 Travel 02/19/2025 Telephone [facility] [address] [place] [address] Alanis Archuleta MD requesting call 02/18/2025 3:30 PM CDT Phone Office Visit [facility] [address] [place] [phone] Pierce Herzog PsyD, LP Individual Therapy; Phone Visit 02/18/2025 Telephone [facility] [address] [place] [address] Pierce Herzog PsyD, LP Questions 02/18/2025 Telephone [facility] [address] [address] Dann Lewis MD Questions 02/18/2025 Travel 02/18/2025 Nurse Triage [facility] [address] [place] [address] Alanis Archuleta MD Hand Pain/problem 02/18/2025 Telephone [facility] [address] [place] [address] Alanis Archuleta MD Concerns (pain in arm) 02/04/2025 3:05 PM CDT Office Visit [facility] [address] [place] [address] Alanis Archuleta MD Derm Problem (Dog scratch - painful ); Diabetes (Unhappy with diabetic care. Pain in arms, told its a medication side effect. /Low sugars - states he's going to stop all his meds) 02/04/2025 Travel 01/30/2025 Nurse Triage [facility] [address] [place] [address] Alanis Archuleta MD Triage (Dog scratch on leg) 01/22/2025 3:30 PM CDT Office Visit [facility] [address] [address] Dann Lewis MD Diabetes (Would like to stop metformin ) 01/22/2025 Travel 01/20/2025 Telephone [facility] [address] [place] [address] Alanis Archuleta MD requesting call 01/07/[address] [address] Dann Lewis MD Questions (requesting a call ) 01/02/2025 3:30 PM CDT Patient Outreach [facility] Care Management - Advanced Care Team [facility] [place] [address] Rachel Davis RN Complex Care Management (Patient Outreach - F/u / Transition) 01/02/2025 Travel 12/26/2024 10:25 AM CDT Office Visit [address] [address] Talha Dominguez MD [facility] F/U (Feeling better) 12/25/2024 12:30 PM CDT Office Visit [address] [address] Pierce Herzog PsyD, JAMAL Individual Therapy 12/25/2024 8:20 AM CDT Office Visit [facility] [address] [place] [phone] Jaye Jean, VIOLET Eye Exam (Diabetic) 12/25/[address] [address] Duc Dominguez MD Form (Medical Request Form - [place] ) 12/25/2024 Travel 12/24/2024 2:30 PM CDT Patient Outreach [facility] Care Management - Advanced Care Team [address] [place] [address] Rachel Davis RN Complex Care Management (Patient Outreach - F/u) 12/24/2024 Travel 12/23/[address] [address] Dann Lewis MD Diabetes (low blood sugar ) 12/23/2024 Nurse Triage [facility] [address] [place] [address] Alanis Archuleta MD Error-please disregard (Patient didn't speak wth triage ) 12/23/2024 Patient Outreach [facility] Care Management - Advanced Care Team [address] [place] [address] Rachel Davis RN Complex Care Management (Patient Outreach - F/u) 12/22/2024 3:30 PM CDT Office Visit [address] [address] Dann Lewis MD Consult 12/22/2024 Travel 12/18/2024 3:05 PM CDT Office Visit [facility] [address] [place] [address] Talha Dominguez MD Diabetes (Not feeling well lately, missing work due to not feeling well. 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 Gender Identity Not on file Sexual Orientation Not on file Obstetrics History Last Filed Vital Signs Vital Sign Reading Time Taken Comments Blood Pressure 125/85 03/16/2025 3:28 PM CDT Pulse 106 03/16/2025 3:28 PM CDT Temperature 37.3 C (99.2 F) 12/18/2024 3:03 PM CDT Respiratory Rate 18 04/02/2024 8:16 AM CDT Oxygen Saturation 97% 03/16/2025 3:28 PM CDT Inhaled Oxygen Concentration - - Weight 81.6 kg (180 lb) 02/20/2025 2:50 PM CDT Height 180.3 cm (5' 11) 04/02/2024 8:16 AM CDT Body Mass Index 25.1 04/02/2024 8:16 AM CDT Plan of Treatment Upcoming Encounters Date Type Department Care Team (Late st Contact Info) Description 03/30/2025 3:30 PM CDT Phone Office Visit [facility] [address] [place] [address] Pierce Herzog PsyD, [address] [place] [address] 04/02/2025 3:00 PM CDT Office Visit [facility] [address] [place] [address] Jaye Jean, VIOLET [address] [place] [address] 04/03/2025 4:15 PM CDT Ancillary Procedure [facility] [address] [place] [address] 04/06/2025 3:30 PM CDT Office Visit [facility] [address] [place] [address] Alanis Archuleta MD [address] [place] [address] 04/20/2025 3:30 PM CDT Phone Office Visit [facility] [address] [place] [phone] Pierce Herzog, Lizzeth, JAMAL [address] [place] [address] Health Maintenance Due Date Last Done Comments [...] 18-79 Completed 10/10/2006 Hepatitis B series for 19+ Completed 09/19, 11/15/2020, 10/11/2020 HIV for age 15-65 Completed 03/29/2023 Tdap Completed 03/29/2023, 08/01/2011 Influenza Vaccine Completed 06/20/2024, , 06/15/2022, Additional history exists Procedures Procedure Name Priority Date/Time Associated Diagnosis Comments XR SPINE CERVICAL 3 VIEWS Routine 02/20/2025 3:41 PM CDT Radial nerve dysfunction, left SCAN CORRESP-EKG RESULTS 12/26/2024 10:01 AM CDT SCAN CORRESP-LABORATORY RESULTS 12/26/2024 10:01 AM CDT C-PEPTIDE Routine 12/22/2024 4:20 PM CDT Diabetes mellitus type 2, uncontrolled, with complications YASH 65 AUTOANTIBODY Routine 12/22/2024 4 :20 PM CDT Diabetes mellitus type 2, uncontrolled, with complications HEMOGLOBIN A1C Routine 12/22/2024 4:20 PM CDT Diabetes mellitus type 2, uncontrolled, with complications IA 2 AUTOANTIBODIES Routine 12/22/2024 4 :20 PM CDT Diabetes mellitus type 2, uncontrolled, with complications LIPID PANEL EMANUEL 08/18/2023 5:09 PM COTTON TIPPER LC HIV-1/O/2, 4TH GENERATION Routine 03/29/2023 4:40 PM CDT Screening for HIV (human immunodeficiency virus) COLONOSCOPY 03/20/2023 12:17 PM CDT ANTI HCV Routine 10/10/2006 2:36 PM COTTON TIPPER Venereal Disease, Unspecified from Last 3 Months or Most Recently Relevant to Health Maintenance Results * XR SPINE CERVICAL 3 VIEWS (02/20/2025 3:41 PM CDT) Anatomical Region Laterality Modality CERVICAL SPINE Computed Radiogr aphy 02/20/2025 8:16 PM CDT Impressions 02/20/2025 8:16 PM CDT 1. No radiographic evidence of acute osseous injury. 2. Stable degenerative changes at C5-6, C6-7. Dictated by Johan Crawford MD @ 02/20/2025 8:16:50 PM (Electronically Signed) Narrative 02/20/2025 8:16 PM CDT For Patients: As a result of the Cures Act, medical imaging exams and procedure reports are released immediately into your electronic medical record. You may view this report before your referring provider. If you have questions, please contact your health care provider. INDICATION: Neck pain. FINDINGS: Three views of the cervical spine are submitted. Compared to prior study from December 13, 2020 The overall stature and alignment of the cervical spine is within normal limits. The prevertebral soft tissues, dens and lateral masses are within normal limits. Stable mild loss of intervertebral disc space height C5-6 and C6-7 levels. Remainder of the intervertebral disc space height appears within normal limits. Procedure Note Donald Crawford, - 02/20/2025 For Patients: As a result of the Cures Act, medical imagingexams and procedure reports are released immediately into your electronicmedical record. You may view this report before your referring provider.If you have questions, please contact your health care provider. INDICATION: Neck pain. FINDINGS: Three views of the cervical spine are submitted. Compared to prior studyfrom December 13, 2020 The overall stature and alignment of the cervical spine is within normallimits. The prevertebral soft tissues, dens and lateral masses are withinnormal limits. Stable mild loss of intervertebral disc space height C5-6and C6-7 levels. Remainder of the intervertebral disc space height appearswithin normal limits. IMPRESSION: 1. No radiographic evidence of acute osseous injury. 2. Stable degenerative changes at C5-6, C6-7. Dictated by Johan Crawford MD @ 02/20/2025 8:16:50 PM (Electronically Signed) us Alanis Archuleta MD GENERAL IMAGING Fi nal Result * SCAN CORRESP-LABORATORY RESULTS (12/26/2024 10:01 AM CDT) Narrative 12/26/2024 10:01 AM CDT Ordered by an unspecified provider. us Other Clinical Staff OTHER Final Resul t * SCAN CORRESP-EKG RESULTS (12/26/2024 10:01 AM CDT) Narrative 12/26/2024 10:01 AM CDT Ordered by an unspecified provider. Other Clinical Staff OTHER Final Resul t * YASH 65 AUTOANTIBODY (12/22/2024 4:20 PM CDT) GLUTAMIC ACID DECARBOXYLASE 65 AB <5 <5 IU/mL [facility], Comment: This test was performed using the GAD65 ROBERT method which is standardized against the International reference preparation 97/550. Blood BLOOD SPECIMEN / Unknown 12/22/2024 4:20 PM CDT 12/22/2024 4:21 PM CDT Dann Lewis MD SEND OUTS Final Result Performing Organization Address [facility] Co de Phone Number [employer] [facility] [address] [place] [address], [employer], [address] [place] [address] * IA 2 AUTOANTIBODIES (12/22/2024 4:20 PM CDT) IA-2 ANTIBODY <5.4 <5.4 U/mL [facility], Comment: This test was performed using the IA-2 Antibody ROBERT method which is standardized against the WHO Reference Reagent 97/550. The reference range reported was established specifically for this test method. Blood BLOOD SPECIMEN / Unknown 12/22/2024 4:20 PM CDT 12/22/2024 4:21 PM CDT Dann Lewis MD SEND OUTS Final Result Performing Organization Address City/[facility]/ZIP Co de Phone Number [employer] [facility] [facility] [address] [place] [address], [facility], [address] [place] [address] * (ABNORMAL) HEMOGLOBIN A1C (12/22/2024 4:20 PM CDT) HEMOGLOBIN A1C 13.8(H) <5.7 % of total Hgb [facility] jim[facility] Christiano Comment: For someone without known diabetes, a [...] for children. Blood BLOOD SPECIMEN / Unknown 12/22/2024 4:20 PM CDT 12/22/2024 4:21 PM CDT Dann Lewis MD CHEMISTRY Final Result [employer] [facility] [address] [place] [address], [place] [phone] [facility] [address] [place] [address] * C-PEPTIDE (12/22/2024 4:20 PM CDT) Pathologist [facility] C-PEPTIDE 1.24 0.80 - 3.85 ng/mL [facility]amel Alvarado Blood BLOOD SPECIMEN / Unknown 12/22/2024 4:20 PM CDT 12/22/2024 4:21 PM CDT us Dann Lewis MD SEND OUTS Final Result [employer] [facility] [address] [place] [address], [place] [phone] [facility] [address] [place] [address] * Lipid Panel (08/18/2023 5:09 PM COTTON TIPPER) CHOLESTEROL,TOTAL 160 100 - 199 mg/dL 08/19/2023 8:30 AM [facility] Comment: Cholesterol, Total Reference Ranges Desirable <200 mg/dL Borderline 200-239 mg/dL High >=240 mg/dL TRIGLYCERIDES 129 <150 mg/dL 08/19/2023 8:30 AM [facility] HDL CHOLESTEROL 59 >40 mg/dL 8:30 AM [facility] NON-HDL CHOLESTEROL 101 <145 mg/dl 08/19/2023 8:30 AM [facility] CHOL/HDL RATIO 2.71 <4.50 08/19/2023 8:30 AM [facility] LDL CHOLESTEROL 75 <=130 mg/dL 08/19/2023 8:30 AM [facility] VLDL CHOLESTEROL 26 <=30 mg/dL 08/19/20 8:30 AM [facility] Blood BLOOD SPECIMEN / Unknown Venipuncture / Unknown 08/18/2023 5:09 PM COTTON TIPPER 08/18/2023 5:11 PM COTTON TIPPER Meng Ricci PAPER TESTING SUPERVISOR CHEMISTRY Final Re sult [facility] [address] [place] [address] * LC HIV-1/O/2, 4TH GENERATION (03/29/2023 4:40 PM CDT) HIV Scr 4th Gen Non Reactive Non Reactive 04/04/2023 3:08 AM CDT [facility] Comment: HIV Negative HIV-1/HIV-2 antibodies and HIV-1 p24 antigen were NOT detected. There is no laboratory evidence of HIV infection. Blood BLOOD SPECIMEN / Unknown Venipuncture / Unknown 03/29/2023 4:40 PM CDT 03/29/2023 4:41 PM CDT Narrative [facility] - 04/04/2023 3:08 AM CDT Performed at: [facility] [address], [place], [place] [id number] Hand Pleater: Marcos Cruz MD, Phone: [phone] [facility] Final Resu lt [facility] ([facility]) [address] [place] [address], * COLONOSCOPY (03/20/2023 12:17 PM CDT) 03/20/2023 12:1 7 PM CDT Narrative Transcriptions Anamaria Sousa DO - 03/28/2023 2:47 PM CDT Patient Name: Bran Bray Procedure Date: 03/20/2023 Gender: Male Date of [...] adequate candidate for conscious sedation. The endoscope [id number] was passed through the anus andadvanced to [...] electronically. Note Initiated On: 03/20/2023 12:17 PM us Anamaria Sousa DO PROCEDURE ORD Fi nal Result * ANTI HCV (10/10/2006 2:36 PM COTTON TIPPER) ANTI HCV Non-reactiv e [facility][NOTE 3] Blood specimen (specimen) BLOOD SPECIMEN / Unknown 10/10/2006 2:36 PM COTTON TIPPER 10/10/2006 2:25 PM COTTON TIPPER Narrative [facility][NOTE 3] - 10/15/2006 6:52 AM COTTON TIPPER Testing Performed By [place], [place] Dre Contreras MD SEND OUTS Final Resul t [facility][NOTE 3] [address] [place] [address] from Last 3 Months or Most Recently Relevant to Health Maintenance Insurance [facility] WORKERS COMP WORKERS COMP WORKERS COMP WORKERS COMP [facility] [employer] [facility] [employer] Advance Directives * Full [...] Code Status Discussion: Reviewed Preferences Care Teams Facility Planner Relationship Specialty Start Date End Date Alanis Archuleta MD [address] [place] [address] PCP - General Family Practice 06/20/24 Anushka Krueger, JERMAINE [address] [place] [address] Coding Support Specialist 11/18/21 Yosvany Alcocer, PharmD [address] [place] [address] Pharmacist Medication Management Pharmacology 10/02/24 10/02/27 [place] [address] [place] [address] Endocrinology Endocrinology 12/22/24
--- OUTSIDE RECORDS SUMMARY | 2025-03-20 10:54 | XMS_ITS | Clinical Summary ---
Author Organization [facility] Address [address] [place] [address] Care Team Providers Care Java Scala Developer Name Role Phone Elsewhere, Pcp Primary Care Provider Unavailabl e Source Comments Patient records contain information from all sites at [facility]. For routine questions regarding patient records, call [phone] during business hours, M-F 8:00 AM - 5:00 PM Central Time. 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 LAB BLOOD ADD-ON Final R esult [facility] [address] [place] [address], [facility] [address] [place] [address] from Last 3 Months or Most Recently Relevant to Health Maintenance Insurance [facility] Care Teams Java Scala Developer Relationship Specialty Start Date End Date Elsewhere, Pcp PCP - General Internal Medicine 05/16/23
--- NOTE | 2025-03-20 11:25 | CRLHL7_ITS ---
For Patients: As a result of the Century Cures Act, medical imaging exams and procedure reports are released immediately into your electronic medical record. You may view this report before your referring provider. If you have questions, please contact your health care provider. Indication: Left arm pain Technique: Limited exam with sagittal T2, T1 and STIR MR sequences obtained. No axial sequences were obtained due to patient intolerance. Comparison: None available. Findings: Exam is markedly limited without axial sequences for level by level interrogation. Grossly, the vertebral body heights are maintained with mild straightening of the normal cervical lordosis. There is minimal degenerative endplate edema at the peripheral bilateral C6-C7 level. No obvious marrow edema to suggest acute fracture. There is multilevel degenerative disc disease with small disc protrusions at the C4-C5, C5-C6 and C6-C7 levels with minimal effacement of the spinal cord at the C5-C6 and C6-C7 levels. No obvious abnormal spinal cord signal. Demonstration of severe left greater than right neural foraminal narrowing at the C6-C7 level. Impression: Partially nondiagnostic exam without axial sequences. Detailed level by level degenerative changes are not able to be described. Grossly, there is demonstration of severe left-sided neural foraminal narrowing at the C6-C7 level secondary to a large posterior disc osteophyte complex and severe uncovertebral joint disease. Questionable lateral disc extrusion. Correlate with history of clinical symptoms. Generally, there is moderate degenerative disc disease with mild straightening and subtle reversal of the normal cervical lordosis with degenerative disc disease appreciated at the C4-C5, C5-C6 and C6-C7 levels with small protrusions and effacement of the ventral spinal cord. No obvious spinal cord signal change. Dictated by Denzel Wilcox MD @ 03/20/2025 12:18:44 PM (Electronically Signed)
[2025-03-20 12:06] LABS: HCO3 VBG 34 mmol/L (21-28); Lactate Sepsis w/Reflex* 2.4 mmol/L (0.5-1.9); PCO2 VBG 41 mmHG (40-50); PO2 VBG 33.6 mmHG (25-47); pH VBG 7.527 (7.32-7.43)
[2025-03-20 12:07] LABS: Basophils Absolute Auto 0.03 K/uL (0.00-0.30); Basophils Percent Auto 0.3 % (0.0-3.0); Eosinophils Absolute Auto 0.23 K/uL (0.00-0.50); Eosinophils Percent Auto 2.3 % (0.0-7.0); Hematocrit 44.7 % (37.0-53.0); Immature Granulocytes Abs Auto 0.01 K/uL (0.00-0.30); Immature Granulocytes Pct Auto 0.1 %; Lymphocytes Absolute Auto 2.81 K/uL (0.90-2.90); Lymphocytes Percent Auto 27.5 % (20-44); Mean Corpuscular HGB Conc 34 gm/dL (32-36); Mean Corpuscular Hemoglobin 28 pg (26-34); Mean Corpuscular Volume 84 fL (80-100); Monocytes Percent Auto 4.8 % (0.0-11.0); Neutrophils Absolute Auto 6.63 K/uL (1.7-7.0); Platelet Count* 327 K/uL (140-440); RDW Coefficient of Variation % 11.7 % (11.5-15.5); Red Blood Count 5.35 m/uL (4.30-5.90)
[2025-03-20 12:11] LABS: Slide Review Reflex No
[2025-03-20] MEDS: predniSONE 20 MG TABLET 60 MG PO (12:12)
--- NOTE | 2025-03-20 12:12 | ED.GENADULT ---
HPI - General Adult General Date Seen: 03/20/25 Chief complaint: Psychiatric Problem/Disorder Stated complaint: Psychiatric- Arm pain Time Seen by Provider: 03/20/25 11:02 History of Present Illness HPI narrative: Patient is a 44-year-old male with past medical history notable for cognitive disability, diabetes with noncompliance and hyperglycemia, admitted here a couple of months ago with significant hyperglycemia but without evidence of DKA. Brought in by EMS today because of reported comments that let his employer to think he might not be safe at home. No clear representation from EMS as to what these comments might have been. It is somewhat fuzzy talking to the patient as to what might have happened today as well. He says that he does have a long history of suicidal thoughts, he thinks these might be getting worse lately, which he reports he believes is due both in part to his blood sugars being poorly controlled as well as left arm pain which he has had for several months. He has pain daily, and says it bothers him more at night than during the day. He saw his primary doctor he tells me last week regarding the arm pain, it looks as if he has been managed on pregabalin for this but he says it is not well managed. He has pain that radiates down the radial aspect of his arm and into the thumb and 2nd finger, he says he does have pain in the upper arm as well. He says his primary doctor thought it may be carpal tunnel. He does not note weakness or loss of function. He reported to the nurse that the left arm pain was his primary concern today. He does acknowledge that he may have made a comment to his employer about suicidal thoughts although he does not recall specifically. He does tell me that he has had recent suicidal thoughts although no specific plan to harm himself. He notes that he is not sure he safe at home although he says this is due to his diabetes and not due to suicidal thoughts. He says he lives with his girlfriend. When he was here hospitalized, his blood sugars were markedly elevated, there was concern that he may not be managing his diabetes properly at that time. His hemoglobin A1cs apparently have been consistently elevated in the past. Today he does report concerns that his blood sugar might be elevated, and reports significant thirst. He denies any attempts to harm himself recently, he does note a remote episode of cutting and a remote hospitalization for mental health, he is not sure when that was or where was. He does not know whether he is on any medications for depression anxiety other mental health problems. He is not sure whether he sees anyone for mental health concerns. Related Data Home Medications ?Medication ?Instructions ?Recorded ?Confirmed empagliflozin 25 mg tablet 25 mg PO DAILY 12/18/24 03/20/25 (Jardiance) insulin aspart U-100 100 unit/mL 15 unit subcut TID 12/18/24 03/20/25 (3 mL) subcutaneous pen (Novolog FlexPen U-100 Insulin aspart) metformin 500 mg tablet,extended 500 mg PO BIDWMEAL 12/18/24 03/20/25 release 24 hr mirtazapine 45 mg tablet 45 mg PO QPM 12/18/24 03/20/25 duloxetine 60 mg capsule,delayed 60 mg PO DAILY 12/19/24 03/20/25 release (Cymbalta) fenofibrate nanocrystallized 145 145 mg PO DAILY 12/19/24 03/20/25 mg tablet (Tricor) lisinopril 5 mg tablet 5 mg PO DAILY 12/19/24 12/19/24 magnesium oxide 400 mg (241.3 mg 800 mg PO BID 12/19/24 03/20/25 magnesium) tablet pravastatin 20 mg tablet 20 mg PO HS 12/19/24 03/20/25 sennosides 8.6 mg tablet (senna) 17.2 mg PO BID PRN constipation 12/19/24 03/20/25 Previous Rx's ?Medication ?Instructions ?Recorded insulin glargine 100 unit/mL (3 40 unit (0.4 mL) subcut HS 30 days 12/20/24 mL) subcutaneous pen (Lantus #12 mL Solostar U-100 Insulin) Allergies Allergy/AdvReac Type Severity Reaction Status Date / Time bee venom protein (honey bee) Allergy Anaphylaxis Verified 03/20/25 10:57 Review of Systems Status of ROS: Reports: 10 or more systems reviewed and unremarkable except as noted in History and below [facility] Medical History (Updated 03/20/25 @ 15:25 by Lizbet Cisse MD) Noncompliance with diabetes treatment ?Z91.199 - Patient's noncompliance with other medical treatment and regimen due to unspecified reason (ICD-10) Hyperlipidemia ?E78.5 - Hyperlipidemia, unspecified (ICD-10) Anxiety ?F41.9 - Anxiety disorder, unspecified (ICD-10) Hypertension ?I10 - Essential (primary) hypertension (ICD-10) Intractable vomiting ?R11.10 - Vomiting, unspecified (ICD-10) Peripheral neuropathy ?G62.9 - Polyneuropathy, unspecified (ICD-10) Depression ?F32.A - Depression, unspecified (ICD-10) Diabetes mellitus ?E11.9 - Type 2 diabetes mellitus without complications (ICD-10) Cognitive developmental delay ?F81.9 - Developmental disorder of scholastic skills, unspecified (ICD-10) Surgical History (Updated 12/18/24 @ 22:31 by Anuj Renae MD) History of hernia repair ?Z98.890 - Other specified postprocedural states (ICD-10) ?Z87.19 - Personal history of other diseases of the digestive system (ICD-10) Family History (Updated 12/18/24 @ 22:32 by Anuj Renae MD) Maternal Grandmother Diabetes Paternal Grandfather Diabetes Social History (Updated 12/18/24 @ 22:33 by Anuj Renae MD) Narrative: He lives with his significant other, Sofy. She is healthcare power of family law attorney. She tries to help him set up is medicines as well. Code status is full. He does not smoke. He drinks alcohol less than once a week. What is your current living situation?: I presently have a place to live Problems where you live: no known problems Problems where you live details: n/a In the past 12 months, utilities in danger of being shut off: no In past 12 months, lack of transportation kept you from medical appts, meetings, work, or getting things needed for daily living: no In the past 12 mos, have been you worried that your food would run out before you had money to buy more?: never true In the past 12 mos, the food you bought just didn't last and you didn't have money to buy more?: never true Highest level of school completed/degree received: some college, no degree Smoking Status: Never smoker Do you use any of these nicotine containing products: None How often do you have a drink containing alcohol: never How often do you have six or more drinks on one occasion: Never AUDIT-C Alcohol total score: 0 Non-prescribed substance use: denies use Caffeine: Yes How often does anyone, including family, friends and others, physically hurt you: never How often does anyone, including family, friends and others, insult or talk down to you: never How often does anyone, including family, friends and others, threaten you with harm: never How often does anyone, including family, friends and others, scream or curse at you: never service: No Exam Narrative: Exam Narrative: Vital signs reviewed In general, alert, nontoxic mid age male. Cooperative. Head: Normocephalic, atraumatic. Eyes: Sclera clear. Pupils equal and reactive. ENT: Mucous membranes moist. Neck: Supple without adenopathy. He has some tenderness in the left paraspinous musculature as well as the left trapezius/rhomboid. Heart: Regular rate and rhythm without murmur. Lungs: Clear. No increased work of breathing, crackles or wheezes. Abdomen: Soft, nontender to palpation. Extremities: Well perfused, pulses intact. No significant edema, erythema, bruising or deformity. Neurologic: Alert, conversant. Speech fluent, face symmetric. Moves all extremities equally. Strength is 5 of 5 in bilateral upper extremities. Sensation is intact to light touch. Skin: Warm, dry well perfused. Affect: Flat. Const: Vital Signs, click to edit/add: Vital Signs - 24 hr 03/20/25 10:50 03/20/25 12:34 03/20/25 12:34 Temperature 98.6 F 98.0 F Pulse Rate 79 Pulse Rate [Right Pulse Oximeter] 96 79 Respiratory Rate 18 18 18 Blood Pressure 95/72 Blood Pressure [Ri ght Upper Arm] 138/94 H 95/72 Pulse Oximetry 97 99 97 Oxygen Delivery Me thod Room Air Room Air Oxygen Flow Rate 03/20/25 12:36 03/20/25 13:02 03/20/25 13:15 Temperature Pulse Rate 78 80 Pulse Rate [Right Pulse Oximeter] Respiratory Rate 18 16 Blood Pressure 92/73 110/78 Blood Pressure [Ri ght Upper Arm] Pulse Oximetry 95 99 86 L Oxygen Delivery Me thod Nasal Cannula Oxygen Flow Rate 1.5 03/20/25 13:15 03/20/25 13:30 03/20/25 13:31 Temperature Pulse Rate 77 81 81 Pulse Rate [Right Pulse Oximeter] Respiratory Rate 18 Blood Pressure 102/74 Blood Pressure [Ri ght Upper Arm] Pulse Oximetry 98 96 96 Oxygen Delivery Me thod Nasal Cannula Nasal Cannula Nasal Cannula Oxygen Flow Rate 1.5 1.5 1.5 03/20/25 13:45 03/20/25 14:00 03/20/25 14:02 Temperature Pulse Rate 83 89 Pulse Rate [Right Pulse Oximeter] Respiratory Rate Blood Pressure 98/72 Blood Pressure [Ri ght Upper Arm] Pulse Oximetry 96 97 Oxygen Delivery Me thod Nasal Cannula Nasal Cannula Nasal Cannula Oxygen Flow Rate 1.5 1.5 1.5 03/20/25 14:15 03/20/25 14:30 03/20/25 14:32 Temperature Pulse Rate 88 87 84 Pulse Rate [Right Pulse Oximeter] Respiratory Rate Blood Pressure 121/82 Blood Pressure [Ri ght Upper Arm] Pulse Oximetry 95 96 96 Oxygen Delivery Me thod Nasal Cannula Nasal Cannula Room Air Oxygen Flow Rate 1.5 1.5 03/20/25 14:45 03/20/25 15:01 Temperature Pulse Rate 89 Pulse Rate [Right Pulse Oximeter] Respiratory Rate Blood Pressure 105/76 Blood Pressure [Ri ght Upper Arm] Pulse Oximetry 93 Oxygen Delivery Me thod Room Air Room Air Oxygen Flow Rate Course Course ED Course: There is a fair amount to unpack here, including his diabetes/metabolic state, mental health, left arm pain. I did elect to do an MRI of his cervical spine today to evaluate for possible radiculopathy, given the duration of his symptoms and his underlying cognitive and mental health status. I think if he does have radiculopathy at this point may be helpful to just determined that. With regard to his mental health state, it is not clear to me that he is actively suicidal although it sounds like this is a somewhat longstanding problem for him. It is not clear to me whether not he has ongoing care for this. Will likely have him speak with telehealth and try to clarify some of this assuming we have him cleared from a medical standpoint. I do think given his symptoms and concerns today that we should evaluate for hyperglycemia, acidosis, etcetera. To that end, I have ordered an IV, labs, will give some fluids. I did order some pain medications and steroids, MRI is ordered. Patient's labs here are notable for a magnesium of 1.4, this is been low previously and replaced, he is on oral replacement at home although it is not clear whether he takes this. I did give him 2 g of IV magnesium here. Tylenol aspirin and alcohol levels are negative. His lactate was 2.4, he did have a L of normal saline here. His venous gas shows a mild metabolic alkalosis, with a pH of 7.5, a bicarb of 34 and pCO2 of 41. His CO2 is 33. Sodium is 136, potassium 3.2, blood sugars elevated at 296, certainly no evidence of DKA today. His repeat lactate after fluids is 1.3. I reviewed his MRI results, apparently he did not tolerate the MRI well enough to do axial sequences so the exam is limited. However, he does have severe left-sided neural foraminal narrowing at C6-7 and questionable lateral disc extrusion. This is in line with his clinical symptoms. I talked with Dr. Archuleta, his primary care doctor, and she will arrange for an outpatient injection for him. I reviewed these findings with him, discussed that I do think we have a way to improve his whole arm pain, which I think is good news. She says that he just started on his pregabalin last week, we discussed a course of steroids, but given how difficult it is to control his blood sugars at baseline he is not a very good candidate for that, and she would prefer to avoid that, which I certainly understand. Will continue the pregabalin for now. When I discussed this plan with him, he said ?you just want to kick me out of here, then he told me he wanted to talk to the social work nurse to file a complaint. I passed this along to the nurse, she said that he had already told her he wanted to file a complaint regarding the fact that the drinking water he was given was not as cold as he prefers. He did also speak with [facility], I spoke with their siebel crm developer, she said that he told her he is not at all suicidal, has a counselor who he meets with regularly and does not have any concerns along those lines. I discussed this with his primary doctor as well, she says when he gets frustrated he sometimes makes suicidal statements, but she does not believe that these are actually intentional, does not believe that he is actively suicidal. Given that he is currently saying he is not suicidal, I think that it is reasonable to listen to what he told the tele health siebel crm developer. Apparently there are concerns about his ability to manage things at home with his diabetes and his cognitive difficulties, and the [facility] social work nurse is already involved in assessing that according to his primary doctor. She said that she sees him very frequently, and has good report with him. I faxed the MRI report to her, and she will follow-up on with him. We did have some difficulty on trying to discharge him, he became a little threatening and aggressive toward staff, I went in to talk with him again, he said that he would be filing a complaint against all of us and we would be hearing from a loan administrator, that if he lost his job it would be our fault, that we did not care about him, those sort of comments. Assured him that he is absolutely willing to talk with the patient advocate at his convenience. We did try and have social service liaison come see him but they were not available. Again [facility] social work and his primary doctor are very much aware of his circumstances and involved in his care. Vital Signs Vital signs: Initial Vital Signs Temperature 98.6 F 03/20/25 10:50 Temperature Source Temporal Artery Scan 03/20/25 10:50 Pulse Rate 96 03/20/25 10:50 Pulse Rhythm Regular 03/20/25 10:50 Pulse Strength 3+ Normal 03/20/25 10:50 Respiratory Rate 18 03/20/25 10:50 Blood Pressure 138/94 H 03/20/25 10:50 Blood Pressure Mean 108 H 03/20/25 10:50 Blood Pressure Position Semi-Fowlers 03/20/25 10:50 Pulse Oximetry 97 03/20/25 10:50 Oxygen Delivery Method Room Air 03/20/25 10:50 Vital Signs Temperature 98.6 F 03/20/25 10:50 Pulse Rate 96 03/20/25 10:50 Respiratory Rate 18 03/20/25 10:50 Blood Pressure 138/94 H 03/20/25 10:50 Pulse Oximetry 97 03/20/25 10:50 Oxygen Delivery Method Room Air 03/20/25 10:50 Temperature 98.0 F 03/20/25 12:34 Pulse Rate 89 03/20/25 14:45 Respiratory Rate 18 03/20/25 13:31 Blood Pressure 105/76 03/20/25 15:01 Pulse Oximetry 93 03/20/25 14:45 Oxygen Delivery Method Room Air 03/20/25 15:01 Oxygen Flow Rate 1.5 03/20/25 14:30 Medications Administered Medications: Discontinued Medications Generic Name Dose Route Start Last Admin Trade Name Filippo PRN Reason Stop Dose Admin Sodium Chloride 1,000 mls @ 1,000 mls/hr 03/20/25 11:30 03/20/25 13:07 0.9 % Sodium Chloride 1000 Ml IV 03/20/25 12:29 Infused .Q1H KARINA Infusion Magnesium Sulfate 2 gm in 50 mls @ 25 mls/hr 03/20/25 12:49 03/20/25 14:57 Magnesium Iv IVPB 03/20/25 14:48 Infused ONCE ONE Infusion Morphine Sulfate 4 mg 03/20/25 11:20 03/20/25 12:13 Morphine 4 Mg/Ml Inj IVP 03/20/25 11:21 4 mg ONCE ONE Administration Ondansetron HCl 4 mg 03/20/25 12:48 03/20/25 13:00 Ondansetron 2 Mg/Ml Inj IVP 03/20/25 12:49 4 mg ONCE ONE Administration Prednisone 60 mg 03/20/25 11:20 03/20/25 12:12 Prednisone 20 Mg Tablet PO 03/20/25 11:21 60 mg ONCE ONE Administration Medical Decision Making Lab Data Lab results reviewed: Yes I reviewed the patient's lab results Labs: Lab Results 03/20/25 03/20/25 03/20/25 Range/Units 11:27 12:00 14:02 WBC 10.20 (4.50-11.00) K/uL RBC 5.35 (4.30-5.90) m/uL Hgb 15.0 (13.5-17.5) gm/dL Hct 44.7 (37.0-53.0) % MCV 84 (80-100) fL MCH 28 (26-34) pg MCHC 34 (32-36) gm/dL RDW Coeff of Tim 11.7 (11.5-15.5) % Plt Count 327 (140-440) K/uL Neut % (Auto) 65.0 (42.0-72.0) % Lymph % (Auto) 27.5 (20-44) % [place] % (Auto) 4.8 (0.0-11.0) % Eos % (Auto) 2.3 (0.0-7.0) % Baso % (Auto) 0.3 (0.0-3.0) % Neut # (Auto) 6.63 (1.7-7.0) K/uL Lymph # (Auto) 2.81 (0.90-2.90) K/uL [place] # (Auto) 0.50 (0.00-0.90) K/UL Eos # (Auto) 0.23 (0.00-0.50) K/uL Baso # (Auto) 0.03 (0.00-0.30) K/uL Abs Immat Gran (auto) 0.01 (0.00-0.30) K/uL Imm/Tot Granulo (auto) 0.1 % VBG pH 7.527 H (7.32-7.43) VBG pCO2 41 (40-50) mmHG VBG pO2 33.6 (25-47) mmHG VBG HCO3 34 H (21-28) mmol/L Sodium 136 (135-149) mmol/L Potassium 4.2 (3.6-5.1) mmol/L Chloride 94 L (96-114) mmol/L Carbon Dioxide 33 H (20-32) mmol/L Anion Gap 9 (7-15) mEq/L BUN 21 (5-24) mg/dL Creatinine 1.0 (0.5-1.5) mg/dL Estimated Creat Clear 101.31 Estimated GFR 94 ml/min Glucose 296 H (60-115) mg/dL Lactate 2.4 H 1.3 (0.5-1.9) mmol/L Calcium 10.2 (8.4-10.6) mg/dL Magnesium 1.4 L (1.5-2.6) mg/dL Salicylates < 1.0 L (1.0-10) mg/dL Acetaminophen < 10.0 (10.0-30.0) ug/mL Ethyl Alcohol < 0.01 (0.01-0.03) % POC Troponin I 0.00 L (0.01-0.04) ng/ml Imaging Data MR - Other: Attestation: I have reviewed the pertinent imaging results. Radiologist's impression: Patient: DONAL KUBALL Facility: [facility] RIS Site . Site : 1980 Study: MRI-Spine Cervical W/O-03/20/2025 12:00:11 PM Ordering Physician: Tanna Somers Final Report: Indication: Left arm pain Technique: Limited exam with sagittal T2, T1 and STIR MR sequences obtained. No axial sequences were obtained due to patient intolerance. Comparison: None available. Findings: Exam is markedly limited without axial sequences for level by level interrogation. Grossly, the vertebral body heights are maintained with mild straightening of the normal cervical lordosis. There is minimal degenerative endplate edema at the peripheral bilateral C6-C7 level. No obvious marrow edema to suggest acute fracture. There is multilevel degenerative disc disease with small disc protrusions at the C4-C5, C5-C6 and C6-C7 levels with minimal effacement of the spinal cord at the C5-C6 and C6-C7 levels. No obvious abnormal spinal cord signal. Demonstration of severe left greater than right neural foraminal narrowing at the C6-C7 level. Impression: Partially nondiagnostic exam without axial sequences. Detailed level by level degenerative changes are not able to be described. Grossly, there is demonstration of severe left-sided neural foraminal narrowing at the C6-C7 level secondary to a large posterior disc osteophyte complex and severe uncovertebral joint disease. Questionable lateral disc extrusion. Correlate with history of clinical symptoms. Generally, there is moderate degenerative disc disease with mild straightening and subtle reversal of the normal cervical lordosis with degenerative disc disease appreciated at the C4-C5, C5-C6 and C6-C7 levels with small protrusions and effacement of the ventral spinal cord. No obvious spinal cord signal change. Discharge Plan Discharge Clinical Impression: Left cervical radiculopathy, Hyperglycemia Patient Disposition: Home, Self-Care Condition: Stable Instructions: Cervical Radiculopathy (ED) Additional Instructions: Dr. Archuleta/[facility] will contact you regarding follow-up for your arm pain, I think that an injection near your neck will likely be very helpful for this pain you have been dealing with. In the meantime, please continue the medication that Dr. Archuleta prescribed the last week. Return any time if you feel you are getting worse, have difficulty with weakness or numbness, fevers, or other new symptoms. Prescriptions: No Action mirtazapine 45 mg tablet 45 mg PO QPM metformin 500 mg tablet extended release 24 hr 500 mg PO BIDWMEAL insulin aspart U-100 [Novolog FlexPen U-100 Insulin] 100 unit/mL (3 mL) insulin pen 15 unit SUBCUT TID Patient Comments: TAKE 15 UNITS WITH LUNCH (1030), SNACK/FASTFOOD (230 PM) AND DINNER (7PM) PER EXCELLIAN CHART, MOST RECENT OUTPATIENT DIRECTIONS. Jardiance 25 mg tablet 25 mg PO DAILY duloxetine [Cymbalta] 60 mg capsule,delayed release(DR/EC) 60 mg PO DAILY magnesium oxide 400 mg (241.3 mg magnesium) tablet 800 mg PO BID fenofibrate nanocrystallized [Tricor] 145 mg tablet 145 mg PO DAILY lisinopril 5 mg tablet 5 mg PO DAILY pravastatin 20 mg tablet 20 mg PO HS sennosides [senna] 8.6 mg tablet 17.2 mg PO BID PRN (Reason: constipation) insulin glargine [Lantus Solostar U-100 Insulin] 100 unit/mL (3 mL) insulin pen 40 unit SUBCUT HS 30 Days Qty: 12 0RF Follow Up/Referrals: Lizbet Rich PA-C [Referring, Family Practice] Stand Alone Forms: [facility] Info Instructions
[2025-03-20] MEDS: MORPHINE 4 MG/ML INJ IVP (12:13)
[2025-03-20] MEDS: 0.9 % SODIUM CHLORIDE 1000 ml 1,000 ML IV (12:13)
[2025-03-20 12:22] LABS: Chloride* 94 mmol/L (96-114); Potassium* 4.2 mmol/L (3.6-5.1); Sodium* 136 mmol/L (135-149)
[2025-03-20 12:25] LABS: Anion Gap 9 mEq/L (7-15); Blood Urea Nitrogen* 21 mg/dL (5-24); Carbon Dioxide* 33 mmol/L (20-32); Est. Creatinine Clearance* 101.31; Estimated Glomerular Filt Rate 94 ml/min
[2025-03-20 12:26] LABS: Calcium* 10.2 mg/dL (8.4-10.6); Glucose* 296 mg/dL (60-115); Magnesium* 1.4 mg/dL (1.5-2.6)
[2025-03-20 12:28] LABS: Acetaminophen* < 10.0 ug/mL (10.0-30.0); Ethanol* < 0.01 % (0.01-0.03); Salicylate* < 1.0 mg/dL (1.0-10)
[2025-03-20] MEDS: ONDANSETRON 2 MG/ML inj 4 MG IVP (13:00)
[2025-03-20] MEDS: MAGNESIUM IV 2 GM/50 ML PIGGYBACK IVPB (13:02)
[2025-03-20 14:07] LABS: Lactate Sepsis 2 Hour 1.3 mmol/L (0.5-1.9)
== END 2025-03-20 16:12 | disposition home or self-care (01) ==
PROVIDERS: Emergency Provider Emergency Medicine; PCP Student in an Organized Health Care Education/Training Program
DX: M54.12 Radiculopathy, cervical region (principal); R73.9 Hyperglycemia, unspecified
CPT/HCPCS: 36415; 72141; 80048; 80143; 80179; 82077; 82803; 83605; 83735; 84484; 85025; 96365; 96375; 99285; J2270; J2405; J3475; J7030; J7512

== ENCOUNTER 2025-04-24 15:15 | Outpatient (RCR) | payer BC, SELFPAY | END 2025-08-22 23:59 | disposition home or self-care (01) | PROVIDERS: PCP Physician Assistant; Visit Provider Student in an Organized Health Care Education/Training Program | DX: M79.601 Pain in right arm (principal); G56.32 Lesion of radial nerve, left upper limb; Z51.89 Encounter for other specified aftercare | CPT/HCPCS: 97110; 97140; 97165; X5282 ==